=== PATIENT | female | born 1995 | race Caucasian/White ===

== ENCOUNTER 2021-04-17 11:31 | Inpatient (IN) | payer OTHER, MEDICAID, SELFPAY ==
[2021-04-17 11:43] VITALS: BP 177/106; PULSE 78; RESP 15; TEMP 37.1; O2SAT 97; BMI 42.7
--- NOTE | 2021-04-17 11:53 | ECG_ITS ---
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 Measurements Intervals [place] Rate: 73 P: 40 WY: 152 QRS: 31 QRSD: 87 T: 14 QT: 411 QTc: 455 Interpretive Statements SINUS RHYTHM No previous ECG available for comparison Electronically Signed On 04-17-2021 20:45:29 INSURANCE ADMINISTRATOR by Angie Modi M.D. [email or web address]
[2021-04-17 12:32] LABS: Basophils # 0.1 10^3/uL (0.0-0.1); Basophils % 0.6 %; Eosinophils # 0.2 10^3/uL (0.0-0.8); Eosinophils % 1.6 %; Hemoglobin 13.5 g/dL (11.5-15.3); Lymphocytes # 3.5 10^3/uL (0.8-4.8); Lymphocytes % 27.2 %; Mean Corpuscular HGB Conc 32.1 g/dL (30.0-36.0); Mean Corpuscular Hemoglobin 28.7 pg (28.0-34.0); Mean Corpuscular Volume 89.2 fl (81-99); Mean Platelet Volume 8.6 fL (7.4-10.4); Monocytes # 0.9 10^3/uL (0.2-0.9); Neutrophils # 8.08 10^3/uL (1.8-7.7); Neutrophils % 63.3 %; Nucleated Red Blood Cells % 0 %; Platelet Count 344 10^3/cmm (130-400); Red Blood Count 4.71 10^6/uL (4.1-5.3); Red Cell Distribution Width 12.9 % (12.1-15.1); White Blood Count 12.8 10^3/uL (4.0-10.0)
[2021-04-17 12:44] VITALS: BP 146/104; PULSE 74; RESP 17; O2SAT 99
[2021-04-17 12:48] LABS: Add Urine Microscopic? NO; Charge for UA Resulting for Rev
[2021-04-17 13:06] LABS: Alanine Aminotransferase 15 U/L (0-33); Alkaline Phosphatase 92 IU/L (35-105); Anion Gap 16.5 (5-19); Aspartate Amino Transferase 16 U/L (0-32); Blood Urea Nitrogen 13 mg/dL (6-20); Calcium 8.3 mg/dL (8.5-10.5); Carbon Dioxide 21 mmol/L (22-29); Chloride 103 mmol/L (98-107); Globulin 3.3 g/dL (1.3-4.6); Glomerular Filtration Rate 119.9 mL/min (90-130); Glucose 83 mg/dL (65-115); Osmolality Calculated 281 mOsm/kg (285-295); Potassium 4.5 mmol/L (3.5-5.1); Sodium 136 mmol/L (136-145); Total Bilirubin 0.3 mg/dL (0.15-1.2); Total Protein 7.3 g/dL (6.6-8.7)
[2021-04-17 13:09] LABS: HCG Qualitative Urine. Negative (Negative)
[2021-04-17 13:09] LABS: Acetaminophen < 5.0 ug/mL (10-30); Alcohol Level < 10 mg/dL (0-10); Salicylate < 0.3 mg/dL (3-10)
[2021-04-17 13:10] LABS: Bilirubin Urine Neg (Negative); Blood Urine Neg (Negative); Glucose Urine UA Norm (Normal); Ketones Urine Negative (Negative); Leukocyte Esterase Urine Negative (Negative); Nitrate Urine Negative (Negative); Protein Urine Neg (Negative); Specific Gravity, Urine 1.015 (1.005-1.030); Urine Appearance Clear (CLEAR); Urine Color Yellow (Yellow); Urobilinogen Urine Norm (Negative); pH Urine 6.5 (5-7)
[2021-04-17 13:17] LABS: Amphetamines Screen Urine Negative (Negative); Barbiturates Screen Urine Negative (Negative); Benzodiazepines Screen Urine Negative (Negative); Cocaine Screen Urine Negative (Negative); Opiate Screen Urine Negative (Negative); PCP Screen Urine Negative (Negative); THC Screen Urine Negative (Negative)
--- NOTE | 2021-04-17 13:41 | W.ED.PSYCHS ---
HPI - Psych General: Chief Complaint: Psychiatric Symptoms Stated Complaint: MHE Time Seen by Provider: 04/17/21 11:52 Source: patient and family Mode of arrival: ambulatory History of Present Illness: HPI Narrative: 25-year-old female complaining of increased suicidal ideations over the past several days. Her plan this morning was to overdose on medication anything I could find She has 6 children, youngest is 2 years old, and often feels they would be better off without me Is , has a supportive , lots of supportive family members. Reports hearing a voice tell her to kill herself, to stop being a coward . Denies visual hallucinations. complaint: suicidal ideation Onset (ago): day(s) Duration: intermittent and getting worse History of same: Yes Associated psychiatric symptoms: depression and auditory hallucinations Associated symptoms: Reports auditory hallucinations, depression and suicidal ideation If self harm: admits thoughts of self harm, has plan and intentional overdose Review of Systems General: Reports: 10 or more systems reviewed and unremarkable except in HPI and below Psych: Reports: anxiety, depression, sleeping less, hopelessness, loss of interest, difficulty concentrating, auditory hallucinations and suicidal ideation [facility] ED PFSH: Medical History Psychiatric care Physical Exam Const: COMMON NORMALS: no acute distress, patient oriented x3 and alert GENERAL APPEARANCE: cooperative NUTRITIONAL APPEARANCE: obese morbidly obese HENMT: COMMON NORMALS: normocephalic and hearing grossly normal bilaterally HEAD & SCALP: normocephalic FACE & SINUS: normal facial exam and face symmetric Eye: COMMON NORMALS: Equal, round and reactive pupils present, EOMs intact bilaterally, conjunctivae normal and no scleral icterus CONJUNCTIVA: Yes conjunctivae normal PUPIL: Yes Equal, round and reactive pupils present Resp: COMMON NORMALS: normal respiratory effort and No use of accessory muscles EFFORT & INSPECTION: Yes able to speak in complete sentences Extremity: COMMON NORMALS: full ROM, capillary refill normal and no clubbing, cyanosis or edema Neuro: COMMON NORMALS: patient oriented x3, moves all extremities and no focal motor deficits SENSORIUM/ORIENTATION: Yes alert SPEECH: speech normal Psych: COMMON NORMALS: mental status grossly normal, Normal thought process present and speech normal ATTITUDE: Yes calm ACTIVITY/MOTOR BEHAVIOR: Yes appropriate eye contact SPEECH: Yes normal speech MOOD & AFFECT: Yes depressed mood, Yes sad and Yes tearful THOUGHT PROCESS: Normal thought process present THOUGHT CONTENT: Yes Hallucination(s) present auditory ATTENTION/CONCENTRATION: Yes attention grossly intact MEMORY/COGNITION: Yes memory grossly intact INSIGHT: Fair insight present (Psych) Course Vital Signs: Vital signs: Vital Signs Temperature 98.8 F 04/17/21 11:43 Pulse Rate 74 04/17/21 12:44 Respiratory Rate 17 04/17/21 12:44 Blood Pressure 146/104 04/17/21 12:44 Pulse Oximetry 99 04/17/21 12:44 MDM - Psych MDM Narrative: Medical decision making narrative: 25-year-old female with suicidal ideations, plans to overdose, Baseline hypertension, otherwise medical work-up is unremarkable. Accepted for direct admission to Neuropsych Unit, Dr. Benavides. Medical Records: Attestation: I reviewed the patient's medical records. Lab Data: Attestation: I reviewed the patient's lab results. Labs: Lab Results 04/17/21 04/17/21 04/17/21 12:15 12:15 12:15 WBC RBC Hgb Hct MCV MCH MCHC RDW Plt Count MPV Neut % (Auto) Lymph % (Auto) Sutter % (Auto) Eos % (Auto) Baso % (Auto) Neut # (Auto) Lymph # (Auto) Sutter # (Auto) Eos # (Auto) Baso # (Auto) Nucleated RBC % (a uto) Nucleated RBCs # Sodium Potassium Chloride Carbon Dioxide Anion Gap BUN Creatinine GFR Calculation Glucose Calculated Osmolal ity Calcium Total Bilirubin AST ALT Alkaline Phosphata se Total Protein Albumin Globulin HCG, Qual Negative (Negative) Urine Color Yellow (Yellow) Urine Appearance Clear (CLEAR) Urine pH 6.5 (5-7) Ur Specific Gravit y 1.015 (1.005-1.030) Urine Protein Neg (Negative) Urine Glucose (UA) Norm (Normal) Urine Ketones Negative (Negative) Urine Blood Neg (Negative) Urine Nitrate Negative (Negative) Urine Bilirubin Neg (Negative) Urine Urobilinogen Norm mg/dL mg/dL (Negative) Ur Leukocyte Bee ase Negative (Negative) Salicylates Urine Opiates Scre en Negative ng/mL ng /mL (Negative) Acetaminophen Ur Barbiturates Sc reen Negative ng/mL ng /mL (Negative) Ur Phencyclidine S crn Negative ng/mL ng /mL (Negative) Ur Amphetamines Sc reen Negative ng/mL ng /mL (Negative) U Benzodiazepines Scrn Negative ng/mL ng /mL (Negative) Urine Cocaine Scre en Negative ng/mL ng /mL (Negative) U Marijuana (THC) Screen Negative ng/mL ng /mL (Negative) Ethyl Alcohol 04/17/21 04/17/21 12:25 12:25 WBC 12.8 10^3/uL H 10 ^3/uL (4.0-10.0) RBC 4.71 10^6/uL 10^6 /uL (4.1-5.3) Hgb 13.5 g/dL g/dL (11.5-15.3) Hct 42.0 % % (37.0-47.0) MCV 89.2 fl fl (81-99) MCH 28.7 pg pg (28.0-34.0) MCHC 32.1 g/dL g/dL (30.0-36.0) RDW 12.9 % % (12.1-15.1) Plt Count 344 10^3/cmm 10^3 /cmm (130-400) MPV 8.6 fL fL (7.4-10.4) Neut % (Auto) 63.3 % % Lymph % (Auto) 27.2 % % Sutter % (Auto) 7.0 % % Eos % (Auto) 1.6 % % Baso % (Auto) 0.6 % % Neut # (Auto) 8.08 10^3/uL H 10 ^3/uL (1.8-7.7) Lymph # (Auto) 3.5 10^3/uL 10^3/ uL (0.8-4.8) Sutter # (Auto) 0.9 10^3/uL 10^3/ uL (0.2-0.9) Eos # (Auto) 0.2 10^3/uL 10^3/ uL (0.0-0.8) Baso # (Auto) 0.1 10^3/uL 10^3/ uL (0.0-0.1) Nucleated RBC % (a uto) 0 % % Nucleated RBCs # 0.0 /100WBC /100W BC Sodium 136 mmol/L mmol/L (136-145) Potassium 4.5 mmol/L mmol/L (3.5-5.1) Chloride 103 mmol/L mmol/L (98-107) Carbon Dioxide 21 mmol/L L mmol/ L (22-29) Anion Gap 16.5 (5-19) BUN 13 mg/dL mg/dL (6-20) Creatinine 0.6 mg/dL mg/dL (0.5-0.9) GFR Calculation 119.9 mL/min mL/m in (90-130) Glucose 83 mg/dL mg/dL (65-115) Calculated Osmolal ity 281 mOsm/kg L mOs m/kg (285-295) Calcium 8.3 mg/dL L mg/dL (8.5-10.5) Total Bilirubin 0.3 mg/dL mg/dL (0.15-1.2) AST 16 U/L U/L (0-32) ALT 15 U/L U/L (0-33) Alkaline Phosphata se 92 IU/L IU/L (35-105) Total Protein 7.3 g/dL g/dL (6.6-8.7) Albumin 4.0 g/dL g/dL (3.5-5.2) Globulin 3.3 g/dL g/dL (1.3-4.6) HCG, Qual Urine Color Urine Appearance Urine pH Ur Specific Gravit y Urine Protein Urine Glucose (UA) Urine Ketones Urine Blood Urine Nitrate Urine Bilirubin Urine Urobilinogen Ur Leukocyte Bee ase Salicylates < 0.3 mg/dL L mg/ dL (3-10) Urine Opiates Scre en Acetaminophen < 5.0 ug/mL L ug/ mL (10-30) Ur Barbiturates Sc reen Ur Phencyclidine S crn Ur Amphetamines Sc reen U Benzodiazepines Scrn Urine Cocaine Scre en U Marijuana (THC) Screen Ethyl Alcohol < 10 mg/dL mg/dL (0-10) Discharge Plan Discharge Patient Disposition: Admitted As Inpatient Clinical Impression: Suicidal ideation Depression Qualifiers: Depression Type: unspecified Qualified Code(s): F32.A - Depression, unspecified Condition: Stable Coding Level of Care Code ED Equal Opportunity Assistant for Analilia Alarcon
[2021-04-17 15:57] VITALS: BP 145/91; PULSE 86; RESP 20; TEMP 36.6; O2SAT 98
[2021-04-17] MEDS: hyDROXYzine 25 mg Capsule 50 MG PO (19:33)
[2021-04-17 19:46] VITALS: BP 167/110; PULSE 81; RESP 18; O2SAT 98
--- NOTE | 2021-04-17 19:58 | PC.NURSE ---
Patient reported hearing voices. Given hydroxizine 50 mg po for this.
[2021-04-17 20:15] VITALS: BP 150/85
[2021-04-17] MEDS: OLANZapine 5 mg ODT PO (20:35)
[2021-04-17] MEDS: lurasidone 20 mg Tablet 40 MG PO (20:35)
--- NOTE | 2021-04-17 20:37 | PC.NURSE ---
Patient stating the voices are getting louder with lots of chatter and are telling her to kill herself. Patient given Zyprexa 5mg sl for this. Patient instructed to come speak to this nurse or other staff if she hears increase in voices or is suicidal.
[2021-04-18 06:00] VITALS: BP 141/84; PULSE 84; RESP 16; O2SAT 96
[2021-04-18] MEDS: escitalopram 10 mg Tablet 20 MG PO (09:34)
--- NOTE | 2021-04-18 12:02 | P.NPUHP_ITS ---
Providers/Chief Complaint Admitting Physician: Jonnie Loredo MD Primary Care Provider: Kiko Carey DO Chief Complaint: MHE HPI NPU History of Present Illness Richi Fountain is a 25 year old female who presented to the emergency department the following report: Chief Complaint: Psychiatric Symptoms Stated Complaint: MHE Time Seen by Provider: 04/17/21 11:52 Source: patient and family Mode of arrival: ambulatory History of Present Illness: HPI Narrative: 25-year-old female complaining of increased suicidal ideations over the past several days. Her plan this morning was to overdose on medication anything I could find She has 6 children, youngest is 2 years old, and often feels they would be better off without me Is , has a supportive , lots of supportive family members. Reports hearing a voice tell her to kill herself, to stop being a coward . Denies visual hallucinations. complaint: suicidal ideation Onset (ago): day(s) Duration: intermittent and getting worse History of same: Yes Associated psychiatric symptoms: depression and auditory hallucinations Associated symptoms: Reports auditory hallucinations, depression and suicidal ideation If self harm: admits thoughts of self harm, has plan and intentional overdose. She was admitted to the neuropsychiatric unit for definitive treatment of those issues. She presents today reporting she has allergies to penicillin and BuSpar and that she is currently taking Lexapro 20 milligrams po qam, Latuda 40 milligrams po q daily, Vistaril prn, and vitamins. She reports that she has been hospitalized one time in her life, which was in January, in [facility], and she has outpatient services at [facility] at [place]. She reports, in addition to the Lexapro, Latuda and Vistaril she is taking, she has taken Seroquel, in the past, and Wellbutrin in the past, which gave her hypertension, and Zoloft with which she had some feeling of numbness. She denies smoking cigarettes, denies drinking alcohol, but does report occasional marijuana use. She denies any other illicit drug use. She has never been to drug rehabilitation or had drug and alcohol treatment. She has never had a DUI or any other drug related charges. She reports she feels that. starting in May of 2019, she had depression after the of her first and only son, and she was started on Zoloft which left her with numbness. She stopped the Zoloft and the numbness resolved and the the depression resolved, but then this January she had a return of the depression that was overwhelming, and she started having suicidal thoughts. She reports feelings of low mood, and of helplessness, hopelessness, and worthlessness. She reports that her sleep does not happen much during the evening, but during the day she wants to sleep all day. She reports that she has some anxiety, lack of initiative to do the things she needs to do, and she does endorse that there has been a major change in that they have been fostering, and she has five teenagers between ages 15 and 18 currently in her home. We discussed the risks, benefits, and alternatives of increasing her Latu da to 80, in an attempt to target the voices, and she understood and agreed to proceed as is documented in this note. PSYCHIATRIC HISTORY: As above. SUBSTANCE ABUSE HISTORY: As above. FAMILY HISTORY: She endorses some mental health issues on her dad?s side of the family, but she denies addiction on either side, or any suicide attempts or completions in the family. DEVELOPMENTAL HISTORY: She reports her mom did have preeclampsia but, otherwise, she denied any issues with her or delivery. She reports she learned to walk and talk and met all developmental milestones on time. When she went to school, the patient denied any need for speech therapy, learning support, emotional support, or special education classes. PSYCHOSOCIAL HISTORY: She reports her parents were together when she was born and remain together. She endorses she has a younger brother who is also a product of that union. She denies any other children that either of her parents have had. She reports her childhood was normal and fine, and she denied any emotional, physical, or sexual abuse. She denies any trauma history but does report that she has always seemed to have nightmares. She endorses graduating from high school and getting a technical degree. She endorses being heterosexual, with her longest relationship being eight years; most recently, for five of those years with her . She has been one time; she has one biological child but is fostering five teenage kids, two sets of siblings and one solo, ages 15 to 19. She denies any history. She endorses being a [employer]. She reports that her longest employment is six years as an [employer]. She reports that she lives in a house with all the foster kids, her son, and her . LEGAL HISTORY: Denied. 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 Meds NPU Home Medications Medication Instructions Recorded Confirmed Last Taken Type escitalopram oxalate 20 mg tablet 20 mg PO DAILY 02/27/21 04/17/21 04/16/21 History lurasidone [Latuda] 40 mg PO BEDTIME 04/17/21 04/17/21 04/16/21 History Allergies Allergy/AdvReac Type Severity Reaction Status Date / Time buspirone Allergy Nausea, Verified 02/26/21 09:23 Vomiting Penicillins Allergy Hives Verified 02/26/21 09:23 PFSH NPU PFSH: Medical History Psychiatric care Mental Status Exam MSE Comments: This is an obese, white female, in hospital scrubs, with limited grooming and adequate eye contact. No abnormal movements, except for mild psychomotor retardation. Cooperative with exam in no acute distress. Speech was decreased rate and volume. Mood described as depressed; affect congruent. Thought process, organized. Thought content: patient endorsed suicidal ideation but denied homicidal ideation, there were no delusions reported or noted, patient does report hearing voices but denied any visual hallucinations. Attention, concentration, and memory appear intact but none were formally tested. She is alert and oriented times three. Insight and judgment are fair. Impulse control is fair. Vitals/I&O/Wt Last Vital Signs Temp 97.8 F 04/17/21 15:57 Pulse 84 04/18/21 06:00 Resp 16 04/18/21 06:00 BP 141/84 04/18/21 06:00 Pulse Ox 96 04/18/21 06:00 Weight last 48 hrs Weight 120.202 kg Data NPU : 04/17/21 12:25 04/17/21 12:25 A&P Assessment and plan (1) Depression: Status: Acute Qualifiers: Depression Type: unspecified Qualified Code(s): F32.A - Depression, un specified (2) Suicidal ideation: Status: Acute (3) Psychosis: Status: Acute (4) Adjustment disorder with mixed disturbance of emotions and conduct: Status: Acute Additional A&P Information This is a 25-year-old, white female, with adjustment disorder with mixed disturbance of emotion and conduct,major depressive disorder, recurrent, severe, and anxiety, who presents with recent onset of auditory hallucinations, open to medication adjustments. 1. Continue current medication, except: 2. Increase Latuda to 80 milligrams daily. 3. Encourage individual, group, and milieu therapy. 4. Continue q-15 minute checks for safety. 5. Recommend sober living treatment at the highest level of care to which the patient is willing to commit. Involuntary Hold Information 96 Hour Hold: 96 Hour Involuntary Admission: No Attestations NPU Medical Necessity Statement*: Inpatient hospitalization is medically necessary and the clinically appropriate intervention, at this time. We will monitor medications and make changes as indicated. Patient will be in the hospital for over two midnights. Likely length of stay is three to five days. Coding Level of Care Code Acute Records Officer for Analilia Alarcon Diagnoses Depression F32.A Depression Type: unspecified Suicidal ideation R45.851 Psychosis F29 Adjustment disorder with mixed disturbance of emotions and conduct F43.25
[2021-04-18] MEDS: lurasidone 80 mg Tablet PO (13:47)
[2021-04-18 14:00] VITALS: BP 141/84; PULSE 84; RESP 16; TEMP 36.6; O2SAT 96
[2021-04-18 20:14] VITALS: BP 136/91; PULSE 70; RESP 16; O2SAT 91
[2021-04-18] MEDS: hyDROXYzine 25 mg Capsule 50 MG PO (20:17)
[2021-04-18] MEDS: trazodone 50 mg Tablet PO (20:17)
--- NOTE | 2021-04-18 20:17 | PC.NURSE ---
Vistaril 50 mg Po given for anxiety and Trazadone 50 mg po given for sleep aide.
[2021-04-19 06:00] VITALS: RESP 18
[2021-04-19] MEDS: escitalopram 10 mg Tablet 20 MG PO (08:34)
[2021-04-19] MEDS: lurasidone 80 mg Tablet PO (08:34)
[2021-04-19 14:00] VITALS: BP 154/94; PULSE 98; RESP 20; TEMP 36.7; O2SAT 97
--- NOTE | 2021-04-19 19:33 | P.NPUPN_ITS ---
Subjective NPU Subjective: Interval history: Patient presents today reporting that she feels better and denied having command auditory hallucinations she had during her first conversation. We had a very lengthy conversation with her mother where an discharge and how she is going to figure out the details of the gentleman she does in her life. We discussed some of the automatic negative thoughts that she has and the critical need for her to figure out how to set boundaries to avoid a repeat of the situation. Mental Status Exam MSE Comments: This is an obese, white female, in hospital scrubs, with limited grooming and adequate eye contact. No abnormal movements, except for mild psychomotor retardation. Cooperative with exam in no acute distress. Speech was decreased rate and volume. Mood described as a little better; affect congruent. Thought process, organized. Thought content: patient endorsed suicidal ideation but denied homicidal ideation, there were no delusions reported or noted, patient denied auditory or any visual hallucinations. Attention, concentration, and memory appear intact but none were formally tested. She is alert and oriented times three. Insight and judgment are fair. Impulse control is fair. Vitals/I&O/Wt Last Vital Signs Temp 97 F L 04/19/21 20:49 Pulse 98 04/19/21 20:49 Resp 16 04/19/21 20:49 BP 120/81 04/19/21 20:49 Pulse Ox 98 04/19/21 20:49 Data NPU : 04/17/21 12:25 04/17/21 12:25 A&P Additional A&P Information (1) Depression: (2) Suicidal ideation: (3) Psychosis: (4) Adjustment disorder with mixed disturbance of emotions and conduct: Additional A&P Information This is a 25-year-old, white female, with adjustment disorder with mixed disturbance of emotion and conduct,major depressive disorder, recurrent, severe, and anxiety, who presents with recent onset of auditory hallucinations, open to medication adjustments. 1. Continue current medication, except: 2. Encourage individual, group, and milieu therapy. 3. Continue q-15 minute checks for safety. 4. Recommend sober living treatment at the highest level of care to which the patient is willing to commit. Involuntary Hold Information 96 Hour Hold: 96 Hour Involuntary Admission: No Attestations NPU Medical Necessity Statement*: Inpatient hospitalization is medically necessary and the clinically appropriate intervention, at this time. We will monitor medications and make changes as indicated. Likely length of stay is 1-3 days. Coding Level of Care Code Acute Auto Body Repair Technician for Analilia Alarcon
[2021-04-19 20:49] VITALS: BP 120/81; PULSE 98; RESP 16; TEMP 36.1; O2SAT 98
[2021-04-20 06:27] VITALS: BP 151/104; PULSE 81; RESP 18; TEMP 36.5; O2SAT 99
[2021-04-20] MEDS: escitalopram 10 mg Tablet 20 MG PO (09:03)
[2021-04-20] MEDS: lurasidone 80 mg Tablet PO (09:03)
--- NOTE | 2021-04-20 15:27 | P.NPUDS_ITS ---
Diagnoses at Discharge Discharge Diagnosis (1) Depression: Status: Acute Qualifiers: Depression Type: unspecified Qualified Code(s): F32.A - Depression, unspecified (2) Suicidal ideation: Status: Resolved (3) Psychosis: Status: Resolved (4) Adjustment disorder with mixed disturbance of emotions and conduct: Status: Acute Reason for Visit Reason for Visit: MHE Brief History: History of Present Illness Richi Fountain is a 25 year old female who presented to the emergency department the following report: Chief Complaint: Psychiatric Symptoms Stated Complaint: MHE Time Seen by Provider: 04/17/21 11:52 Source: patient and family Mode of arrival: ambulatory History of Present Illness: HPI Narrative: 25-year-old female complaining of increased suicidal ideations over the past several days. Her plan this morning was to overdose on medication anything I could find She has 6 children, youngest is 2 years old, and often feels they would be better off without me Is , has a supportive , lots of supportive family members. Reports hearing a voice tell her to kill herself, to stop being a coward . Denies visual hallucinations. MD complaint: suicidal ideation Onset (ago): day(s) Duration: intermittent and getting worse History of same: Yes Associated psychiatric symptoms: depression and auditory hallucinations Associated symptoms: Reports auditory hallucinations, depression and suicidal ideation If self harm: admits thoughts of self harm, has plan and intentional overdose. She was admitted to the neuropsychiatric unit for definitive treatment of those issues. She presents today reporting she has allergies to penicillin and BuSpar and that she is currently taking Lexapro 20 milligrams po qam, Latuda 40 milligrams po q daily, Vistaril prn, and vitamins. She reports that she has been hospitalized one time in her life, which was in January, in [facility], and she has outpatient services at [facility] [place]. She reports, in addition to the Lexapro, Latuda and Vistaril she is taking, she has taken Seroquel, in the past, and Wellbutrin in the past, which gave her hypertension, and Zoloft with which she had some feeling of numbness. She denies smoking cigarettes, denies drinking alcohol, but does report occasional marijuana use. She denies any other illicit drug use. She has never been to drug rehabilitation or had drug and alcohol treatment. She has never had a DUI or any other drug related charges. She reports she feels that. starting in May of 2019, she had depression after the of her first and only son, and she was started on Zoloft which left her with numbness. She stopped the Zoloft and the numbness resolved and the the depression resolved, but then this January she had a return of the depression that was overwhelming, and she started having suicidal thoughts. She reports feelings of low mood, and of helplessness, hopelessness, and worthlessness. She reports that her sleep does not happen much during the evening, but during the day she wants to sleep all day. She reports that she has some anxiety, lack of initiative to do the things she needs to do, and she does endorse that there has been a major change in that they have been fostering, and she has five teenagers between ages 15 and 18 currently in her home. We discussed the risks, benefits, and alternatives of increasing her Latuda to 80, in an attempt to target the voices, and she understood and agreed to proceed as is documented in this note. PSYCHIATRIC HISTORY: As above. SUBSTANCE ABUSE HISTORY: As above. FAMILY HISTORY: She endorses some mental health issues on her dad?s side of the family, but she denies addiction on either side, or any suicide attempts or completions in the family. DEVELOPMENTAL HISTORY: She reports her mom did have preeclampsia but, otherwise, she denied any issues with her or delivery. She reports she learned to walk and talk and met all developmental milestones on time. When she went to school, the patient denied any need for speech therapy, learning support, emotional support, or special education classes. PSYCHOSOCIAL HISTORY: She reports her parents were together when she was born and remain together. She endorses she has a younger brother who is also a product of that union. She denies any other children that either of her parents have had. She reports her childhood was normal and fine, and she denied any emotional, physical, or sexual abuse. She denies any trauma history but does report that she has always seemed to have nightmares. She endorses graduating from high school and getting a technical degree. She endorses being heterosexual, with her longest relationship being eight years; most recently, for five of those years with her . She has been one time; she has one biological child but is fostering five teenage kids, two sets of siblings and one solo, ages 15 to 19. She denies any history. She endorses being a Sikh. 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 She reports that she lives in a house with all the foster kids, her son, and her . LEGAL HISTORY: Denied. 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 Hospital Course Hospital Course She quickly acclimated to the individual, group and milieu therapies provided. We made sure she had all of her medications as prescribed and adjusted the time of her dosing. She had significant improvement during the hospitalization. Clearly a need for ongoing therapy for her cognitive distortions existed. Some possibility for personality disorder existed as well. She was able to contract for safety outside the hospital prior to discharge. During the hospitalization, patient had routine laboratory studies which were within normal limits except for few outliers. Additionally there was a general medical evaluation which was also within normal limits and revealed no new acute processes. Discharge Summary: At the time of discharge, psychosis and lethality were denied. Mood and anxiety were well managed. Patient endorsed a plan to follow-up with the aftercare recommendations of the treatment team. Patient was evaluated and deemed to be absent credible lethality, and had achieved the maximum benefit from an inpatient hospitalization, so was discharged. Involuntary Hold Information 96 Hour Hold: 96 Hour Involuntary Admission: No Mental Status Exam MSE Comments: This is an obese, white female, in hospital scrubs, with adequate grooming and adequate eye contact. No abnormal movements. Cooperative with exam in no acute distress. Speech was more normal rate and volume. Mood described as better; affect congruent. Thought process, organized. Thought content: patient denied suicidal ideation or homicidal ideation, there were no delusions reported or noted, patient denied auditory or any visual hallucinations. Attention, concentration, and memory appear intact but none were formally tested. She is alert and oriented times three. Insight and judgment are fair. Impulse control is fair. Discharge Data Vitals: Last Vital Signs Temp 97.7 F 04/20/21 06:27 Pulse 81 04/20/21 06:27 Resp 18 04/20/21 06:27 BP 151/104 04/20/21 06:27 Pulse Ox 99 04/20/21 06:27 Discharge Plan Discharge Patient Disposition: Home Condition: Stable Prescriptions: Discontinued escitalopram oxalate [Lexapro] 20 mg tablet 20 mg PO DAILY RF: 0 Latuda 40 mg tablet 40 mg PO BEDTIME RF: 0 No Action Lexapro 20 mg tablet 20 mg PO DAILY 30 Days Qty: 30 RF: 3 Latuda 120 mg tablet 120 mg PO .qhs 30 Days Qty: 30 RF: 3 hydroxyzine HCl 25 mg tablet 25 mg PO QID PRN (Reason: anxiety or sleep) Qty: 120 RF: 3 quetiapine 50 mg tablet 50 mg PO .qhs 30 Days Qty: 30 RF: 3 Discharge Orders: Discharge Order (Routine); Ordered 04/20/21 Ordered By: Juan Ball Referrals: Meghann Fox MD [[place]] - 04/22/21 (Medications appointment with Dr. Fox at the [facility] on 04/22/21) Kiesha Lim LCSW [Referring] - 04/26/21 (Therapy appointment with Kiesha Lim on 04/26/21 at the [facility] ) Kiko Carey DO [Primary Care Provider] - Discharge Diet: Regular Discharge Activity: Resume usual activity Patient Instructions: Opioid Safety Discharge Attestations NPU Time Spent in Discharge Care*: less than 30 min Specific Discharge Activities: Specific discharge activities: educating patient, discussing with case resource manager/social workers/dc planners, documenting/other paperwork and evaluating patient/reviewing data Coding Level of Care Code Acute Chg FW DC note Diagnoses Depression F32.A Depression Type: unspecified Suicidal ideation R45.851 Psychosis F29 Adjustment disorder with mixed disturbance of emotions and conduct F43.25
[2021-04-20 15:28] VITALS: BP 151/104; PULSE 81; RESP 18; TEMP 36.5; O2SAT 99
== END 2021-04-20 15:31 | disposition home or self-care (01) | DRG 881 ==
LOC: ER 14:35 → NP 15:06
PROVIDERS: Admitting Provider Psychiatry & Neurology Psychiatry; Emergency Provider Family Medicine; PCP Family Medicine; Visit Provider Psychiatry & Neurology Psychiatry
DX: F32.A Depression, unspecified (principal); R45.851 Suicidal ideations; Z68.41 Body mass index [BMI] 40.0-44.9, adult; F29 Unspecified psychosis not due to a substance or known physiological condition; F43.25 Adjustment disorder with mixed disturbance of emotions and conduct; F41.9 Anxiety disorder, unspecified; E66.9 Obesity, unspecified
CPT/HCPCS: 80053; 80306; 80307; 81003; 81025; 85025; 93005; 97150; 97165; 99285

== ENCOUNTER 2021-10-15 11:22 | Inpatient (IN) | payer BC, MEDICAID, SELFPAY ==
[2021-10-15 11:38] VITALS: BP 138/98; PULSE 115; RESP 13; TEMP 37.1; O2SAT 97; BMI 43.2
--- NOTE | 2021-10-15 11:54 | W.ED.PSYCHS ---
HPI - Psych General: Chief Complaint: Psychiatric Symptoms Stated Complaint: SI Time Seen by Provider: 10/15/21 11:44 History of Present Illness: 26-year-old presents with suicidal ideation. She states she is on gabapentin Latuda and lithium. Reports plan to overdose on gabapentin but states she has not done it yet. Denies any homicidal ideation. Denies any focal pain. Denies any hallucinations or delusions. Review of Systems Narrative: - CONSTITUTIONAL: Denies weight loss, fever and chills. - HEENT: Denies changes in vision and hearing. - RESPIRATORY: Denies SOB and cough. - CV: Denies palpitations and CP. - GI: Denies abdominal pain, nausea, vomiting and diarrhea. - : Denies dysuria and urinary frequency. - MSK: Denies myalgia and joint pain. - SKIN: Denies rash and pruritus. - NEUROLOGICAL: Denies headache, weakness, numbness and syncope. - PSYCHIATRIC: As above [facility] ED PFSH: Medical History (Updated 04/22/21 @ 15:08 by Meghann Fox MD) MDD (major depressive disorder), single episode, severe with psychotic features Psychiatric care Physical Exam Narrative: EXAM NARRATIVE: - GENERAL: Alert and oriented x 3. No acute distress. Well-nourished. - EYES: EOMI. Anicteric. - HENT: Atraumatic, no C-spine tenderness. Moist mucous membranes. No scleral icterus. No cervical lymphadenopathy. - LUNGS: Clear to auscultation bilaterally. No accessory muscle use. Equal lung sounds bilaterally. No respiratory distress. - CARDIOVASCULAR: Regular rate and rhythm. No murmur. No JVD. - ABDOMEN: Soft, non-tender and non-distended. Negative CVA tenderness bilaterally, no rebound or guarding, negative Zelaya sign. No palpable masses. - EXTREMITIES: No edema. Non-tender. - SKIN: No rashes or lesions. Warm. - NEUROLOGIC: No meningismus or focal neurological deficits. CN II-XII grossly intact. - PSYCHIATRIC: Suicidal ideation Course Vital Signs: Vital signs: Vital Signs Temperature 98.7 F 10/15/21 11:38 Pulse Rate 115 H 10/15/21 11:38 Respiratory Rate 13 10/15/21 11:38 Blood Pressure 138/98 10/15/21 11:38 Pulse Oximetry 97 10/15/21 11:38 [facility] - Psych Medical Decision Making 26-year-old presents due to suicidal ideation. States she plans to overdose on gabapentin but is not done so yet. Remainder of lab work is unremarkable except for white count elevation to 19 however there is no sign of focal infection. Discussed with psychiatry and they agreed patient would benefit from admission. Patient admitted in stable condition. Further evaluation management per psychiatry team. Lab Data : 10/15/21 12:08 10/15/21 12:08 Laboratory Results WBC 19.3 10^3/uL (4.0-10.0) H 10/15/21 12:08 RBC 5.17 10^6/uL (4.1-5.3) 10/15/21 12:08 Hgb 15.3 g/dL (11.5-15.3) 10/15/21 12:08 Hct 45.0 % (37.0-47.0) 10/15/21 12:08 MCV 87.0 fl (81-99) 10/15/21 12:08 MCH 29.6 pg (28.0-34.0) 10/15/21 12:08 MCHC 34.0 g/dL (30.0-36.0) 10/15/21 12:08 RDW 12.8 % (12.1-15.1) 10/15/21 12:08 Plt Count 399 10^3/cmm (130-400) 10/15/21 12:08 MPV 8.4 fL (7.4-10.4) 10/15/21 12:08 Neut % (Auto) 75.4 % 10/15/21 12:08 Lymph % (Auto) 18.5 % 10/15/21 12:08 [place] % (Auto) 4.8 % 10/15/21 12:08 Eos % (Auto) 0.6 % 10/15/21 12:08 Baso % (Auto) 0.4 % 10/15/21 12:08 Neut # (Auto) 14.57 10^3/uL (1.8-7.7) H 10/15/21 12:08 Lymph # (Auto) 3.6 10^3/uL (0.8-4.8) 10/15/21 12:08 [place] # (Auto) 0.9 10^3/uL (0.2-0.9) 10/15/21 12:08 Eos # (Auto) 0.1 10^3/uL (0.0-0.8) 10/15/21 12:08 Baso # (Auto) 0.1 10^3/uL (0.0-0.1) 10/15/21 12:08 Nucleated RBC % (auto) 0 % 10/15/21 12:08 Nucleated RBCs # 0.0 /100WBC 10/15/21 12:08 Sodium 137 mmol/L (136-145) 10/15/21 12:08 Potassium 4.0 mmol/L (3.5-5.1) 10/15/21 12:08 Chloride 102 mmol/L (98-107) 10/15/21 12:08 Carbon Dioxide 22 mmol/L (22-29) 10/15/21 12:08 Anion Gap 17.0 (5-19) 10/15/21 12:08 BUN 10 mg/dL (6-20) 10/15/21 12:08 Creatinine 0.6 mg/dL (0.5-0.9) 10/15/21 12:08 GFR Calculation 119.0 mL/min (90-130) 10/15/21 12:08 Glucose 102 mg/dL (65-115) 10/15/21 12:08 Calculated Osmolality 283 mOsm/kg (285-295) L 10/15/21 12:08 Calcium 9.4 mg/dL (8.5-10.5) 10/15/21 12:08 Total Bilirubin 0.2 mg/dL (0.15-1.2) 10/15/21 12:08 AST 14 U/L (0-32) 10/15/21 12:08 ALT 24 U/L (0-33) 10/15/21 12:08 Alkaline Phosphatase 88 IU/L (35-105) 10/15/21 12:08 Total Protein 8.2 g/dL (6.6-8.7) 10/15/21 12:08 Albumin 4.7 g/dL (3.5-5.2) 10/15/21 12:08 Globulin 3.5 g/dL (1.3-4.6) 10/15/21 12:08 TSH 1.35 uIU/mL (0.27-4.20) 10/15/21 12:08 HCG, Qual Negative (Negative) 10/15/21 11:30 Urine Color Yellow (Yellow) 10/15/21 11:30 Urine Appearance Clear (CLEAR) 10/15/21 11:30 Urine pH 5 (5-7) 10/15/21 11:30 Ur Specific [place] 1.030 (1.005-1.030) 10/15/21 11:30 Urine Protein Neg (Negative) 10/15/21 11:30 Urine Glucose (UA) Norm (Normal) 10/15/21 11:30 Urine Ketones Negative (Negative) 10/15/21 11:30 Urine Blood Neg (Negative) 10/15/21 11:30 Urine Nitrate Negative (Negative) 10/15/21 11:30 Urine Bilirubin Neg (Negative) 10/15/21 11:30 Urine Urobilinogen Norm mg/dL (Negative) 10/15/21 11:30 Ur Leukocyte Esterase Negative (Negative) 10/15/21 11:30 Salicylates < 0.3 mg/dL (3-10) L 10/15/21 12:08 Urine Opiates Screen Negative ng/mL (Negative) 10/15/21 11:30 Acetaminophen < 5.0 ug/mL (10-30) L 10/15/21 12:08 Ur Barbiturates Screen Negative ng/mL (Negative) 10/15/21 11:30 Ur Phencyclidine Scrn Negative ng/mL (Negative) 10/15/21 11:30 Ur Amphetamines Screen Negative ng/mL (Negative) 10/15/21 11:30 U Benzodiazepines Scrn Negative ng/mL (Negative) 10/15/21 11:30 [place] 0.2 mmol/L (0.6-1.2) L 10/15/21 12:08 Urine Cocaine Screen Negative ng/mL (Negative) 10/15/21 11:30 U Marijuana (THC) Screen Negative ng/mL (Negative) 10/15/21 11:30 Ethyl Alcohol < 10 mg/dL (0-10) 10/15/21 12:08 Discharge Plan Discharge Condition: Stable Prescriptions: No Action hydroxyzine HCl 25 mg tablet 25 mg PO QID PRN (Reason: anxiety or sleep) Qty: 120 3RF gabapentin 100 mg capsule 300 mg PO TID 0RF lithium carbonate 300 mg tablet 300 mg PO BEDTIME 0RF Latuda 20 mg Tablet 20 mg PO DAILY 0RF Rx Instructions: must administer with food (at least 350 calories) Ozempic 1 mg/dose (4 mg/3 mL) pen injector 1 mg SUBCUT Q7D 0RF Rx Instructions: On Fridays Referrals: Shantell Ybarra FNP [Primary Care Provider] - Coding Level of Care Code ED Intermediate Designer for Analilia Alarcon
[2021-10-15 12:13] LABS: Add Urine Microscopic? NO; Charge for UA Resulting for Rev
[2021-10-15 12:16] LABS: Bilirubin Urine Neg (Negative); Blood Urine Neg (Negative); Glucose Urine UA Norm (Normal); Ketones Urine Negative (Negative); Leukocyte Esterase Urine Negative (Negative); Nitrate Urine Negative (Negative); Protein Urine Neg (Negative); Urine Appearance Clear (CLEAR); Urine Color Yellow (Yellow); Urobilinogen Urine Norm (Negative); pH Urine 5 (5-7)
[2021-10-15 12:18] LABS: Basophils # 0.1 10^3/uL (0.0-0.1); Basophils % 0.4 %; Eosinophils # 0.1 10^3/uL (0.0-0.8); Eosinophils % 0.6 %; Hemoglobin 15.3 g/dL (11.5-15.3); Lymphocytes # 3.6 10^3/uL (0.8-4.8); Lymphocytes % 18.5 %; Mean Corpuscular Hemoglobin 29.6 pg (28.0-34.0); Mean Platelet Volume 8.4 fL (7.4-10.4); Monocytes # 0.9 10^3/uL (0.2-0.9); Monocytes % 4.8 %; Neutrophils # 14.57 10^3/uL (1.8-7.7); Neutrophils % 75.4 %; Nucleated Red Blood Cells % 0 %; Platelet Count 399 10^3/cmm (130-400); Red Blood Count 5.17 10^6/uL (4.1-5.3); Red Cell Distribution Width 12.8 % (12.1-15.1); White Blood Count 19.3 10^3/uL (4.0-10.0)
[2021-10-15 12:25] LABS: Amphetamines Screen Urine Negative (Negative); Barbiturates Screen Urine Negative (Negative); Benzodiazepines Screen Urine Negative (Negative); Cocaine Screen Urine Negative (Negative); Opiate Screen Urine Negative (Negative); PCP Screen Urine Negative (Negative); THC Screen Urine Negative (Negative)
[2021-10-15 12:40] LABS: HCG Qualitative Urine. Negative (Negative)
[2021-10-15 12:42] LABS: Lithium 0.2 mmol/L (0.6-1.2)
[2021-10-15 12:43] LABS: Alanine Aminotransferase 24 U/L (0-33); Albumin Level 4.7 g/dL (3.5-5.2); Alkaline Phosphatase 88 IU/L (35-105); Aspartate Amino Transferase 14 U/L (0-32); Blood Urea Nitrogen 10 mg/dL (6-20); Calcium 9.4 mg/dL (8.5-10.5); Carbon Dioxide 22 mmol/L (22-29); Chloride 102 mmol/L (98-107); Globulin 3.5 g/dL (1.3-4.6); Glucose 102 mg/dL (65-115); Osmolality Calculated 283 mOsm/kg (285-295); Sodium 137 mmol/L (136-145); Thyroid Stimulating Hormone 1.35 uIU/mL (0.27-4.20); Total Bilirubin 0.2 mg/dL (0.15-1.2); Total Protein 8.2 g/dL (6.6-8.7)
[2021-10-15 12:46] LABS: Acetaminophen < 5.0 ug/mL (10-30); Alcohol Level < 10 mg/dL (0-10); Salicylate < 0.3 mg/dL (3-10)
[2021-10-15 14:27] VITALS: BP 109/78; PULSE 104; RESP 18; O2SAT 100
[2021-10-15 15:00] VITALS: BP 109/78; PULSE 104; RESP 16; O2SAT 100
[2021-10-15 18:03] VITALS: BP 140/96; PULSE 89; RESP 17; TEMP 36.6; O2SAT 96
[2021-10-15 20:42] VITALS: BP 136/95; PULSE 112; RESP 16; TEMP 36.8; O2SAT 99
[2021-10-15] MEDS: hyDROXYzine 25 mg Capsule 50 MG PO (20:52)
[2021-10-15] MEDS: OLANZapine 5 mg ODT PO (20:53)
[2021-10-15] MEDS: trazodone 50 mg Tablet PO (20:53)
--- NOTE | 2021-10-15 21:13 | PC.NURSE ---
Patient given trazadone 50 mg po, Zyprexa 5 mg po and hydroxyzine 50 mg for c/o insomnia and commanding auditory hallucinations. Patient states voices are telling me to kill myself.
[2021-10-16 06:00] VITALS: BP 94/51; PULSE 92; RESP 18; TEMP 36.6; O2SAT 98
--- NOTE | 2021-10-16 08:56 | P.NPUHP_ITS ---
Providers/Chief Complaint Admitting Physician: Juan Ball MD Primary Care Provider: ERIK Gregory Chief Complaint: SI HPI NPU History of Present Illness Richi Fountain is a 26 year old female who presented to the emergency department with the following report: Chief Complaint: Psychiatric Symptoms Stated Complaint: SI Time Seen by Provider: 10/15/21 11:44 History of Present Illness: 26-year-old presents with suicidal ideation. She states she is on gabapentin Latuda and lithium. Reports plan to overdose on gabapentin but states she has not done it yet. Denies any homicidal ideation. Denies any focal pain. Denies any hallucinations or delusions. She was admitted to the neuropsychiatric unit for definitive treatment of those issues. 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 She reports that since discharge on Lexapro 20 and Latuda 40 she had continued to have depression. She reports that they decided to put her on lithium and decrease her Latuda. She started Ozempic and there was an increase in tremors she reports about 2 weeks ago there was a shift in her mood and she started feeling like she was hypomanic and that time she was having grandiosity decreased need for sleep and increased energy and racing thoughts. For the last week she reports that that switched over to being depressed having increased sleep low motivation suicidal ideation with a plan to overdose on her Neurontin. She is also had a reemergence of intermittent auditory hallucinations. We reviewed her medications and discussed the risk benefits and alternatives of making some changes and she understood and agreed to proceed as is documented in this note. She reports that otherwise there have been no substantive changes since her last hospitalization and an excerpt of that note is included below for context. Per her 04/18/2021 [facility] inpatient psychiatric evaluation: Richi Fountain is a 25 year old female who presented to the emergency department the following report: Chief Complaint: Psychiatric Symptoms Stated Complaint: MHE Time Seen by Provider: 04/17/21 11:52 Source: patient and family Mode of arrival: ambulatory History of Present Illness:?? HPI Narrative: 25-year-old female complaining of increased suicidal ideations over the past several days.? Her plan this morning was to overdose on medication anything I could find She has 6 children, youngest is 2 years old, and often feels they would be better off without me Is , has a supportive , lots of supportive family members. Reports hearing a voice tell her to kill herself, to stop being a coward . Denies visual hallucinations. ? complaint: suicidal ideation Onset (ago): day(s) Duration: intermittent and getting worse History of same: Yes Associated psychiatric symptoms: depression and auditory hallucinations Associated symptoms: Reports auditory hallucinations, depression and suicidal ideation If self harm: admits thoughts of self harm, has plan and intentional overdose. She was admitted to the neuropsychiatric unit for definitive treatment of those issues. She presents today reporting she has allergies to penicillin and BuSpar and that she is currently taking Lexapro 20 milligrams po qam, Latuda 40 milligrams po q daily, Vistaril prn, and vitamins. She reports that she has been hospitalized one time in her life, which was in January, in [facility], and she has outpatient services at [facility] at [place]. She reports, in addition to the Lexapro, Latuda and Vistaril she is taking, she has taken Seroquel, in the past, and Wellbutrin in the past, which gave her hypertension, and Zoloft with which she had some feeling of numbness. She denies smoking cigarettes, denies drinking alcohol, but does report occasional marijuana use. She denies any other illicit drug use. She has never been to drug rehabilitation or had drug and alcohol treatment. She has never had a DUI or any other drug related charges. She reports she feels that. starting in May of 2019, she had depression after the of her first and only son, and she was started on Zoloft which left her with numbness. She stopped the Zoloft and the numbness resolved and the the depression resolved, but then this January she had a return of the depression that was overwhelming, and she started having suicidal thoughts. She reports feelings of low mood, and of helplessness, hopelessness, and worthlessness. She reports that her sleep does not happen much during the evening, but during the day she wants to sleep all day. She reports that she has some anxiety, lack of initiative to do the things she needs to do, and she does endorse that there has been a major change in that they have been fostering, and she has five teenagers between ages 15 and 18 currently in her home.? We discussed the risks, benefits, and alternatives of increasing her Latuda to 80, in an attempt to target the voices, and she understood and agreed to proceed as is documented in this note.? PSYCHIATRIC HISTORY: As above. SUBSTANCE ABUSE HISTORY: As above.? FAMILY HISTORY: She endorses some mental health issues on her dad?s side of the family, but she denies addiction on either side, or any suicide attempts or completions in the family. DEVELOPMENTAL HISTORY: She reports her mom did have preeclampsia but, otherwise, she denied any issues with her or delivery. She reports she learned to walk and talk and met all developmental milestones on time. When she went to school, the patient denied any need for speech therapy, learning support, emotional support, or special education classes. PSYCHOSOCIAL HISTORY: She reports her parents were together when she was born and remain together. She endorses she has a younger brother who is also a product of that union. She denies any other children that either of her parents have had. She reports her childhood was normal and fine, and she denied any emotional, physical, or sexual abuse. She denies any trauma history but does report that she has always seemed to have nightmares. She endorses graduating from high school and getting a technical degree.? She endorses being heterosexual, with her longest relationship being eight years; most recently, for five of those years with her . She has been one time; she has one biological child but is fostering five teenage kids, two sets of siblings and one solo, ages 15 to 19. She denies any history.? She endorses being a Taoism. She reports that her longest employment is six years as an [employer]. She reports that she lives in a house with all the foster kids, her son, and her . LEGAL HISTORY: Denied. 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 Meds NPU Home Medications Medication Instructions Recorded Confirmed Last Taken Type hydroxyzine HCl 25 mg tablet 25 mg PO QID PRN #120 tab 04/22/21 10/15/21 10/15/21 Rx gabapentin 100 mg capsule 300 mg PO TID 10/15/21 10/15/21 10/15/21 History lisinopril 10 mg tablet 10 mg PO DAILY 10/15/21 10/15/21 Unknown History lithium carbonate 300 mg tablet 300 mg PO BEDTIME 10/15/21 10/15/21 10/14/21 History lurasidone 20 mg tablet (Latuda) 20 mg PO DAILY 10/15/21 10/15/21 10/14/21 History semaglutide 1 mg/dose (4 mg/3 mL) 1 mg SUBCUT Q7D 10/15/21 10/15/21 10/11/21 History subcutaneous pen injector (Ozempic) lamotrigine 25 mg tablet 50 mg PO DAILY 10/16/21 10/16/21 Unknown History Allergies Allergy/AdvReac Type Severity Reaction Status Date / Time buspirone Allergy Nausea, Verified 05/06/21 14:36 Vomiting lamotrigine [From Lamictal] Allergy ALGY-Rash Verified 10/15/21 11:38 Penicillins Allergy Hives Verified 05/06/21 14:36 PFSH NPU PFSH: Medical History (Updated 10/16/21 @ 10:10 by Juan Ball MD) MDD (major depressive disorder), single episode, severe with psychotic features Psychiatric care Mental Status Exam MSE Comments: This is an obese versus morbidly obese white female, in hospital scrubs, with limited grooming and adequate eye contact. No abnormal movements, except for mild psychomotor retardation. Cooperative with exam in no acute distress. Speech was decreased rate and volume. Mood described as depressed; affect congruent. Thought process, organized. Thought content: patient endorsed?suicidal ideation but denied homicidal ideation, there were no delusions reported or noted, patient does report hearing voices intermittently but denied any visual hallucinations. Attention, concentration, and memory appear intact but none were formally tested. She is alert and oriented times three. Insight fair, judgment impaired. Impulse control is limited. Vitals/I&O/Wt Last Vital Signs Temp 98.3 F 10/15/21 20:42 Pulse 112 H 10/15/21 20:42 Resp 16 10/15/21 20:42 BP 136/95 10/15/21 20:42 Pulse Ox 99 10/15/21 20:42 Weight last 48 hrs Weight 121.563 kg Data NPU : 10/15/21 12:08 10/15/21 12:08 A&P Assessment and plan (1) Bipolar disorder, curr episode depressed, severe, w/psychotic features: Status: Acute Plan This is a 26-year-old white female with a long history of mental health issues and different diagnoses in the past who presents with symptoms consistent with bipolar disorder versus schizoaffective disorder currently on medications but with concerns related to efficacy as well as possible planned open to make changes to help stabilize her current mood. 1. Continue current medications. Except we will talk to her insurance company to identify whether Vraylar is an option instead of the Latuda and possibly move away from the lithium with another mood stabilizer. 2. Continue every 15 minute checks for safety. 3. Encourage individual, group and milieu therapies. 4. We will ensure that past addictive issues are no longer present. Involuntary Hold Information 96 Hour Hold: 96 Hour Involuntary Admission: No Attestations NPU Medical Necessity Statement*: Inpatient hospitalization is medically necessary and the clinically appropriate intervention at this time. We will monitor medications and make changes as indicated. She will be in the hospital for over 2 midnights. Likely length of stay 4 to 6 days. Coding Level of Care Code Acute Mobile Lounge Driver for Analilia Alarcon Diagnoses Bipolar disorder, curr episode depressed, severe, w/psychotic features F31.5
[2021-10-16] MEDS: gabapentin 300 mg Capsule PO ×3 (09:10→20:34)
[2021-10-16] MEDS: lurasidone 20 mg Tablet PO (09:10)
[2021-10-16] MEDS: lisinopril 10 mg Tablet PO (09:11)
[2021-10-16] MEDS: lamoTRIgine 100 mg Tablet 50 MG PO (09:11)
[2021-10-16 14:00] VITALS: BP 94/51; PULSE 92; RESP 18; TEMP 36.6; O2SAT 98
[2021-10-16 20:30] VITALS: BP 129/86; PULSE 94; RESP 18; TEMP 36.7; O2SAT 98
[2021-10-16] MEDS: lithium carbonate 300 mg Capsule PO (20:34)
[2021-10-16] MEDS: hyDROXYzine 25 mg Capsule 50 MG PO (21:31)
[2021-10-17 06:00] VITALS: BP 110/75; PULSE 89; RESP 18; TEMP 36.4; O2SAT 97
[2021-10-17] MEDS: lurasidone 20 mg Tablet PO (08:42)
[2021-10-17] MEDS: lisinopril 10 mg Tablet PO (08:42)
[2021-10-17] MEDS: lamoTRIgine 100 mg Tablet 50 MG PO (08:43)
[2021-10-17] MEDS: hyDROXYzine 25 mg Capsule PO ×2 (08:43→20:42)
[2021-10-17] MEDS: gabapentin 300 mg Capsule PO ×3 (08:44→20:42)
--- NOTE | 2021-10-17 11:53 | PC.NURSE ---
NEW ORDER SPOKE WITH DR. JOE NEW ORDERS RECEIVED TO DISCONTINUE LAMICTIAL AND LITHIUM. ORDERS PLACED IN [facility]. DR. JOE WENT AND NOTIFIED PT OF NEW ORDERS.
[2021-10-17 14:00] VITALS: BP 146/89; PULSE 96; RESP 18; TEMP 36.8; O2SAT 100
--- NOTE | 2021-10-17 16:17 | W.PM.NPUPNS ---
Subjective NPU Subjective: Patient presents today reporting that she is still feeling depressed. She reports that the Latuda is ineffective discussed with benefits and alternatives of initiating Vraylar and she understood and agreed to proceed as is documented in this note. We also discussed discontinuing the lithium at the subtherapeutic dose given we will not be increasing it given her lack of desire to continue it due to trying to get . Mental Status Exam MSE Comments: This is an obese versus morbidly obese white female, in hospital scrubs, with limited grooming and adequate eye contact. No abnormal movements, except for mild psychomotor retardation. Cooperative with exam in no acute distress. Speech was decreased rate and volume. Mood described as still depressed; affect congruent. Thought process, organized. Thought content: patient endorsed fleeting suicidal ideation but denied homicidal ideation, there were no delusions reported or noted, patient does report hearing voices intermittently but denied any visual hallucinations. Attention, concentration, and memory appear intact but none were formally tested. She is alert and oriented times three. Insight fair, judgment impaired. Impulse control is limited. Vitals/I&O/Wt Last Vital Signs Temp 98.4 F 10/17/21 20:48 Pulse 111 H 10/17/21 20:48 Resp 20 H 10/17/21 20:48 BP 124/85 10/17/21 20:48 Pulse Ox 99 10/17/21 20:48 Data NPU : 10/15/21 12:08 10/15/21 12:08 A&P Assessment and plan (1) Bipolar disorder, curr episode depressed, severe, w/psychotic features: Status: Acute (2) Adjustment disorder with mixed disturbance of emotions and conduct: Status: Acute Plan This is a 26-year-old white female with a long history of mental health issues and different diagnoses in the past who presents with symptoms consistent with bipolar disorder versus schizoaffective disorder currently on medications but with concerns related to efficacy as well as possible planned open to make changes to help stabilize her current mood. 1.? Continue current medications.? Except we will talk to her insurance company to identify whether Vraylar is an option instead of the Latuda. Discontinue lithium. 2.? Continue every 15 minute checks for safety. 3.? Encourage individual, group and milieu therapies. 4.? We will ensure that past addictive issues are no longer present. Involuntary Hold Information 96 Hour Hold: 96 Hour Involuntary Admission: No Attestations NPU Medical Necessity Statement*: Inpatient hospitalization is medically necessary and the clinically appropriate intervention at this time.? We will monitor medications and make changes as indicated.? Likely length of stay 3-5 days. Coding Level of Care Code Acute Aboriginal Community Council Member for [facility] Fwd Diagnoses Bipolar disorder, curr episode depressed, severe, w/psychotic features F31.5 Adjustment disorder with mixed disturbance of emotions and conduct F43.25
[2021-10-17 20:48] VITALS: BP 124/85; PULSE 111; RESP 20; TEMP 36.9; O2SAT 99
[2021-10-17] MEDS: trazodone 50 mg Tablet PO (22:01)
[2021-10-18 06:00] VITALS: BP 136/83; PULSE 98; RESP 18; TEMP 36.6; O2SAT 98
[2021-10-18] MEDS: lurasidone 20 mg Tablet PO (08:41)
[2021-10-18] MEDS: lisinopril 10 mg Tablet PO (08:41)
[2021-10-18] MEDS: gabapentin 300 mg Capsule PO ×3 (08:41→20:17)
--- NOTE | 2021-10-18 09:06 | PC.NURSE ---
NEW ORDER RECEIVED FROM DR. SANDHU TO START VRAYLAR 1.5 MG PO DAILY. CALLED SCRIPT TO [facility] HOUSE PHARM[facility]Y. ORDERS PLACED IN [facility]
--- NOTE | 2021-10-18 09:20 | PC.NURSE ---
PT STATES SHE SLEPT WELL. REPORTS SHE IS STILL HAVING SUICIDAL THOUGHTS WITH NO PLAN. CONTRACTED FOR SAFETY. DENIES PAIN. DENIES HI AND AVH AT THIS TIME. PT IS SOMEWHAT ANXIOUS. STATES IF SHE NEEDS ANXIETY MEDS SHE WILL LET STAFF KNOW. PT UP TALKING ON PHONE WITH APPEARS TO BE IN BETTER SPIRITS TODAY. ALL QUESTIONS ANSWERED AND SUPPORT VOICED.
--- NOTE | 2021-10-18 09:49 | PC.NURSE ---
INPATIENT PHARMACY UNABLE TO FILL VRAYLAR 1.5 MG. CALLED SCRIPT IN TO [facility] IN [place]. WILL AUTO WHEEL ALIGNMENT SPECIALIST SCRIPT AND BRING TO THE FACILITY AT VISITATION TIME.
[2021-10-18] MEDS: OLANZapine 5 mg ODT PO (11:35)
--- NOTE | 2021-10-18 11:35 | PC.NURSE ---
Pt experiencing Suicidal thoughts administered a 5mg Zyprexa Zydis, contracted for safety.
--- NOTE | 2021-10-18 12:18 | PC.NURSE ---
NEW ORDERS TO [facility]. ORDERS PLACED AND PT EDUCATED.
[2021-10-18 13:31] VITALS: BP 121/70; PULSE 103; RESP 17; TEMP 36.7; O2SAT 98
[2021-10-18] MEDS: NON-FORMULARY MEDICATION (Cariprazine [Vraylar] 1.5 mg Capsule) 1.5 EACH PO (15:41)
--- NOTE | 2021-10-18 16:27 | W.PM.NPUPNS ---
Subjective NPU Subjective: Patient presents today reporting that she is feeling more optimistic as the changes are occurring. Spoke with mother and patient regarding bipolar illness, patient reports passive wish intermittently. No longer on lithium and no side effects reported today, though she continues to report depressed mood. Patient reports no feelings of hopelessness, but reports continued depression. Patient reports increase stress in home managing children, Reports hx of worsening of mood two years ago. Able to obtain Vraylar from outpatient pharmacy and started 1.5 mg p.o. daily. Mental Status Exam MSE Comments: This is an obese versus morbidly obese white female, in hospital scrubs, with limited grooming and adequate eye contact. No abnormal movements, except for mild psychomotor retardation. Cooperative with exam in no acute distress. Speech was decreased rate and volume. Mood described as still depressed; affect congruent and restricted. Thought process, organized. Thought content: patient endorsed passive wish but denied suicidal or homicidal ideation, there were no delusions reported or noted, patient does report hearing voices intermittently but denied any visual hallucinations and not attending to internal stimuli. Attention, concentration, and memory appear intact but none were formally tested. She is alert and oriented times three. Insight fair, judgment impaired. Impulse control is limited. Vitals/I&O/Wt Last Vital Signs Temp 98.0 F 10/18/21 13:31 Pulse 112 H 10/18/21 20:00 Resp 16 10/18/21 20:00 BP 112/78 10/18/21 20:00 Pulse Ox 100 10/18/21 20:00 Data NPU : 10/15/21 12:08 10/15/21 12:08 A&P Assessment and plan (1) Bipolar disorder, curr episode depressed, severe, w/psychotic features: Status: Acute (2) Adjustment disorder with mixed disturbance of emotions and conduct: Status: Acute Plan This is a 26-year-old white female with a long history of mental health issues and different diagnoses in the past who presents with symptoms consistent with bipolar disorder versus schizoaffective disorder currently on medications but with concerns related to efficacy as well as possible planned open to make changes to help stabilize her current mood. 1.? Continue current medications.? Start Vraylar 1.5 mg p.o. every morning. 2.? Continue every 15 minute checks for safety. 3.? Encourage individual, group and milieu therapies. 4.? We will ensure that past addictive issues are no longer present. Involuntary Hold Information 96 Hour Hold: 96 Hour Involuntary Admission: No Attestations NPU Medical Necessity Statement*: Inpatient hospitalization is medically necessary and the clinically appropriate intervention at this time.? We will monitor medications and make changes as indicated.?? Likely length of stay 2-4 days. Coding Level of Care Code Acute Counter Tacker for [facility] Fwd Diagnoses Bipolar disorder, curr episode depressed, severe, w/psychotic features F31.5 Adjustment disorder with mixed disturbance of emotions and conduct F43.25
[2021-10-18 20:00] VITALS: BP 112/78; PULSE 112; RESP 16; O2SAT 100
[2021-10-18] MEDS: trazodone 50 mg Tablet PO ×2 (20:17→21:30)
[2021-10-19] MEDS: hyDROXYzine 25 mg Capsule 50 MG PO (02:55)
[2021-10-19 06:00] VITALS: BP 111/78; PULSE 69; RESP 16; O2SAT 99
[2021-10-19] MEDS: gabapentin 300 mg Capsule PO ×3 (09:00→20:29)
[2021-10-19] MEDS: lisinopril 10 mg Tablet PO (09:00)
[2021-10-19] MEDS: NON-FORMULARY MEDICATION (Cariprazine [Vraylar] 1.5 mg Capsule) 1.5 EACH PO (09:02)
--- NOTE | 2021-10-19 11:30 | P.NPUPN_ITS ---
Subjective NPU Subjective: Patient presents today reporting that she has been been more optimistic about the vraylar controlling her voices. Despite this she had received additional zyprexa oral yesterday as she described the voices being more overwhelming at times. She denied any olivia, she reports some relief of anxiety and pain with neurontin. She reports struggling with falling asleep having received 100mg of tranzodone at night. She reports continued desire to get . Mental Status Exam MSE Comments: obese white female, in hospital scrubs, with fair grooming and adequate eye contact. No abnormal movements, except for mild psychomotor retardation. Cooperative with exam in no acute distress. Speech was normal for rate and volume. Mood described as still depressed; affect congruent and restricted. Thought process, linear and organized. Thought content: patient endorsed passive wish but denied suicidal or homicidal ideation, there were no delusional thinking noted, patient does report hearing voices intermittently but denied any visual hallucinations and was not attending to internal stimuli. Attention, concentration, and memory appear intact but none were formally tested. She is alert and oriented times three. Insight fair, judgment impaired. Impulse control is limited. Vitals/I&O/Wt Last Vital Signs Temp 98.2 F 10/19/21 20:27 Pulse 84 10/19/21 20:27 Resp 16 10/19/21 20:27 BP 128/94 10/19/21 20:27 Pulse Ox 98 10/19/21 20:27 Weight last 48 hrs Weight 124.284 kg Data NPU : 10/15/21 12:08 10/15/21 12:08 A&P Assessment and plan (1) Bipolar disorder, curr episode depressed, severe, w/psychotic features: Status: Acute Plan This is a 26-year-old white female with bipolar I disorder most recent episode depressed with psychotic features currently endorsing auditory hallucinations that appear to be less intense with no evidence of manic symptoms emerging. 1.? Continue Vraylar 1.5 mg p.o. every morning. Continue trazadone 100mg at night for insomnia, increase gabapentin to 400 tid. 2.? Continue every 15 minute checks for safety. 3.? Encourage individual, group and milieu therapies. 4.? We will ensure that past addictive issues are no longer present. Involuntary Hold Information 96 Hour Hold: 96 Hour Involuntary Admission: No Attestations NPU Medical Necessity Statement*: Inpatient hospitalization is medically necessary and the clinically appropriate intervention at this time.? We will monitor medications and make changes as indicated.?? Likely length of stay 2-3 days. Coding Level of Care Code Acute Inspector Bullet Slugs for [facility] Fwd History Problem Focused Exam Problem Focused Medical Decision Making Straight Forward Diagnoses Bipolar disorder, curr episode depressed, severe, w/psychotic features F31.5
[2021-10-19 14:00] VITALS: BP 140/88; PULSE 80; RESP 17; TEMP 36.6; O2SAT 98
[2021-10-19 20:27] VITALS: BP 128/94; PULSE 84; RESP 16; TEMP 36.8; O2SAT 98
[2021-10-19] MEDS: trazodone 50 mg Tablet PO (20:29)
[2021-10-20 06:00] VITALS: BP 128/94; PULSE 86; RESP 16; TEMP 36.4; O2SAT 98; BMI 44.2
[2021-10-20] MEDS: lisinopril 10 mg Tablet PO (08:00)
[2021-10-20] MEDS: NON-FORMULARY MEDICATION (Cariprazine [Vraylar] 1.5 mg Capsule) 1.5 EACH PO (08:00)
[2021-10-20] MEDS: gabapentin 400 mg Capsule PO ×3 (08:00→20:34)
--- NOTE | 2021-10-20 11:20 | P.NPUPN_ITS ---
Subjective NPU Subjective: Patient presents today reporting that she has been been more optimistic about th e vraylar controlling her voices. She reports that she has had no side effects from vraylar. She reports mood has been better. She reports better control of the voices even though they are present. No manic symptoms reported. Mental Status Exam MSE Comments: ?obese white female, in hospital scrubs, with fair? grooming and adequate eye contact. No abnormal movements, except for mild psychomotor retardation. Cooperative with exam in no acute distress. Speech was normal for rate and vo lume. Mood described as better affect was brighter today. Thought process, linear and organized. Thought content: patient denied suicidal or homicidal ideation, there were no delusional thinking noted, patient does report hearing voices intermittently but denied any visual hallucinations and was not attending to internal stimuli. Attention, concentration, and memory appear intact but none were formally tested. She is alert and oriented times three. Insight fair, judgment impaired. Impulse control is limited. Vitals/I&O/Wt Last Vital Signs Temp 97.6 F 10/21/21 14:00 Pulse 93 10/21/21 14:00 Resp 18 10/21/21 14:00 BP 141/90 10/21/21 14:00 Pulse Ox 99 10/21/21 14:00 Weight last 48 hrs Weight 124.284 kg Weight 124.284 kg Data NPU : 10/15/21 12:08 10/15/21 12:08 A&P Assessment and plan (1) Bipolar disorder, curr episode depressed, severe, w/psychotic features: Status: Acute Plan This is a 26-year-old white female with bipolar I disorder most recent episode depressed with psychotic features currently endorsing auditory hallucinations that appear to be less intense with no evidence of manic symptoms emerging.? 1.? Increase Vraylar 3 mg p.o. every morning.? Continue trazadone 100mg at night for insomnia, increase gabapentin to 400 tid.? 2.? Continue every 15 minute checks for safety. 3.? Encourage individual, group and milieu therapies. 4.? We will ensure that past addictive issues are no longer present. Involuntary Hold Information 96 Hour Hold: 96 Hour Involuntary Admission: No Attestations NPU Medical Necessity Statement*: Inpatient hospitalization is medically necessary and the clinically appropriate intervention at this time.? We will monitor medications and make changes as indicated.?? Likely length of stay 2-3 days. Coding Level of Care Code Established Pt Acute Pain Management Nurse for [facility] Fwd Patient Type Established History Problem Focused Exam Problem Focused Medical Decision Making Straight Forward Diagnoses Bipolar disorder, curr episode depressed, severe, w/psychotic features F31.5
[2021-10-20 14:00] VITALS: BP 120/70; PULSE 99; RESP 16; TEMP 36.8; O2SAT 98
[2021-10-20] MEDS: trazodone 50 mg Tablet PO (20:34)
[2021-10-21 06:00] VITALS: BP 120/77; PULSE 90; RESP 18; TEMP 36.6; O2SAT 98
--- NOTE | 2021-10-21 08:31 | PC.NURSE ---
UP IN HALLWAY AMBULATING. NO DISTRESS NOTED. DENIES PAIN. APPEARS TO BE IN GOOD SPIRITS THIS AM. DENIES SI/HI AND AVH AT THIS TIME. PT STATES SHE SLEPT WELL ALL NIGHT. SUPPORT VOICED.
[2021-10-21] MEDS: lisinopril 10 mg Tablet PO (09:18)
[2021-10-21] MEDS: gabapentin 400 mg Capsule PO ×3 (09:18→20:43)
[2021-10-21] MEDS: NON-FORMULARY MEDICATION (Cariprazine [Vraylar] 1.5 mg Capsule) 1.5 EACH PO ×2 (09:19→13:47)
--- NOTE | 2021-10-21 12:28 | W.PM.NPUPNS ---
Subjective NPU Subjective: She reports better control of her voices, states that the voices have been quiet. She reported good sleep and appetite. She did not forward any thoughts of hurting herself she reports that she has been motivated to leave here. She reported no side effects from her increase in Vraylar. Mental Status Exam MSE Comments: ?obese white female, in hospital scrubs, with fair? grooming and adequate eye contact. No abnormal movements, except for mild psychomotor retardation. Cooperative with exam in no acute distress. Speech was normal for rate and volume. Mood described as better affect was brighter today.? Thought process, linear and organized. Thought content: patient? denied suicidal or homicidal ideation, there were no delusional thinking noted, patient does report hearing voices intermittently but denied any visual hallucinations and was not attending to internal stimuli. Attention, concentration, and memory appear intact but none were formally tested. She is alert and oriented times three. Insight fair, judgment impaired. Impulse control is limited. Vitals/I&O/Wt Last Vital Signs Temp 97.6 F 10/21/21 14:00 Pulse 93 10/21/21 14:00 Resp 18 10/21/21 14:00 BP 141/90 10/21/21 14:00 Pulse Ox 99 10/21/21 14:00 Weight last 48 hrs Weight 124.284 kg Data NPU : 10/15/21 12:08 10/15/21 12:08 A&P Assessment and plan (1) Bipolar disorder, curr episode depressed, severe, w/psychotic features: Status: Acute Plan This is a 26-year-old white female with bipolar I disorder most recent episode depressed with psychotic features currently endorsing auditory hallucinations that appear to be less intense with no evidence of manic symptoms emerging.? 1.? Continue Vraylar 3 mg p.o. every morning.? Continue trazadone 100mg at night for insomnia, continue gabapentin to 400 tid.? 2.? Continue every 15 minute checks for safety. 3.? Encourage individual, group and milieu therapies. 4.? We will ensure that past addictive issues are no longer present. 5. Likely discharge tommorow Involuntary Hold Information 96 Hour Hold: 96 Hour Involuntary Admission: No Attestations NPU Medical Necessity Statement*: Inpatient hospitalization is medically necessary and the clinically appropriate intervention at this time.? We will monitor medications and make changes as indicated.?? Likely length of stay 1-2 days. Coding Level of Care Code Established Pt Acute Director Of Research And Development for Chg Fwd Patient Type Established History Problem Focused Exam Problem Focused Medical Decision Making Straight Forward Diagnoses Bipolar disorder, curr episode depressed, severe, w/psychotic features F31.5
[2021-10-21 14:00] VITALS: BP 141/90; PULSE 93; RESP 18; TEMP 36.4; O2SAT 99
[2021-10-21] MEDS: trazodone 50 mg Tablet PO (20:43)
[2021-10-21 22:00] VITALS: BP 118/84; PULSE 102; RESP 19; TEMP 36.7; O2SAT 98
[2021-10-22 06:00] VITALS: BP 127/87; PULSE 96; RESP 17; TEMP 36.7; O2SAT 98
[2021-10-22] MEDS: loperamide 2 mg Capsule PO (06:25)
[2021-10-22] MEDS: lisinopril 10 mg Tablet PO (08:05)
[2021-10-22] MEDS: gabapentin 400 mg Capsule PO (08:05)
[2021-10-22] MEDS: CARIPRAZINE 3 MG 3 EACH PO (09:59)
--- NOTE | 2021-10-22 11:11 | PC.NURSE ---
UP IN ROOM MAKING BED. APPEARS TO BE IN BETTER SPIRITS TODAY. PT DENIES PAIN. DENIES SI/HI AND AVH AT THIS TIME. PT REPORTS SHE HAS NOT HEARD ANY VOICES SINCE LAST NIGHT, WHICH IS AN IMPROVEMENT FOR HER. PT STATES SHE IS READY FOR DC AND EXCITED TO HOME WITH FAMILY. SUPPORT VOICED.
[2021-10-22 12:53] VITALS: BP 127/87; PULSE 96; RESP 17; TEMP 36.7; O2SAT 98
--- NOTE | 2021-10-22 12:59 | P.NPUDS_ITS ---
Diagnoses at Discharge Discharge Diagnosis (1) Bipolar disorder, curr episode depressed, severe, w/psychotic features: Status: Acute Reason for Visit Reason for Visit: SI Brief History: History of Present Illness Richi Fountain is a 26 year old female who presented to the emergency department with the following report: Chief Complaint: Psychiatric Symptoms Stated Complaint: SI Time Seen by Provider: 10/15/21 11:44 History of Present Illness:?? 26-year-old presents with suicidal ideation.? She states she is on gabapentin Latuda and lithium.? Reports plan to overdose on gabapentin but states she has not done it yet.? Denies any homicidal ideation.? Denies any focal pain.? Denies any hallucinations or delusions. She was admitted to the neuropsychiatric unit for definitive treatment of those issues.? She is known to this sports writer from a previous inpatient stay that started 04/18/2021.? She reports that since discharge on Lexapro 20 and Latuda 40 she had continued to have depression.? She reports that they decided to put her on lithium and decrease her Latuda.? She started Ozempic and there was an increase in tremors she reports about 2 weeks ago there was a shift in her mood and she started feeling like she was hypomanic and that time she was having grandiosity decreased need for sleep and increased energy and racing thoughts.? For the last week she reports that that switched over to being depressed having increased sleep low motivation suicidal ideation with a plan to overdose on her Neurontin.? She is also had a reemergence of intermittent auditory hallucinations.? We reviewed her medications and discussed the risk benefits and alternatives of making some changes and she understood and agreed to proceed as is documented in this note.? She reports that otherwise there have been no substantive changes since her last hospitalization and an excerpt of that note is included below for context. Per her 04/18/2021 [facility] inpatient psychiatric evaluation: Richi Fountain is a 25 year old female who presented to the emergency department the following report: Chief Complaint: Psychiatric Symptoms Stated Complaint: MHE Time Seen by Provider: 04/17/21 11:52 Source: patient and family Mode of arrival: ambulatory History of Present Illness:?? HPI Narrative: 25-year-old female complaining of increased suicidal ideations over the past several days.? Her plan this morning was to overdose on medication anything I could find She has 6 children, youngest is 2 years old, and often feels they would be better off without me Is , has a supportive , lots of supportive family members. Reports hearing a voice tell her to kill herself, to stop being a coward . Denies visual hallucinations. ? complaint: suicidal ideation Onset (ago): day(s) Duration: intermittent and getting worse History of same: Yes Associated psychiatric symptoms: depression and auditory hallucinations Associated symptoms: Reports auditory hallucinations, depression and suicidal ideation If self harm: admits thoughts of self harm, has plan and intentional overdose. She was admitted to the neuropsychiatric unit for definitive treatment of those issues. She presents today reporting she has allergies to penicillin and BuSpar and that she is currently taking Lexapro 20 milligrams po qam, Latuda 40 milligrams po q daily, Vistaril prn, and vitamins. She reports that she has been hospitalized one time in her life, which was in January, in [facility], and she has outpatient services at [facility] [place]. She reports, in addition to the Lexapro, Latuda and Vistaril she is taking, she has taken Seroquel, in the past, and Wellbutrin in the past, which gave her hypertension, and Zoloft with which she had some feeling of numbness. She denies smoking cigarettes, denies drinking alcohol, but does report occasional marijuana use. She denies any other illicit drug use. She has never been to drug rehabilitation or had drug and alcohol treatment. She has never had a DUI or any other drug related charges. She reports she feels that. starting in May of 2019, she had depression after the of her first and only son, and she was started on Zoloft which left her with numbness. She stopped the Zoloft and the numbness resolved and the the depression resolved, but then this January she had a return of the depression that was overwhelming, and she started having suicidal thoughts. She reports feelings of low mood, and of helplessness, h opelessness, and worthlessness. She reports that her sleep does not happen much during the evening, but during the day she wants to sleep all day. She reports that she has some anxiety, lack of initiative to do the things she needs to do, and she does endorse that there has been a major change in that they have been fostering, and she has five teenagers between ages 15 and 18 currently in her home.? We discussed the risks, benefits, and alternatives of increasing her Latuda to 80, in an attempt to target the voices, and she understood and agreed to proceed as is documented in this note.? PSYCHIATRIC HISTORY: As above. SUBSTANCE ABUSE HISTORY: As above.? FAMILY HISTORY: She endorses some mental health issues on her dad?s side of the family, but she denies addiction on either side, or any suicide attempts or completions in the family. DEVELOPMENTAL HISTORY: She reports her mom did have preeclampsia but, otherwise, she denied any issues with her or delivery. She reports she learned to walk and talk and met all developmental milestones on time. When she went to school, the patient denied any need for speech therapy, learning support, emotional support, or special education classes. PSYCHOSOCIAL HISTORY: She reports her parents were together when she was born and remain together. She endorses she has a younger brother who is also a product of that union. She denies any other children that either of her parents have had. She reports her childhood was normal and fine, and she denied any emotional, physical, or sexual abuse. She denies any trauma history but does report that she has always seemed to have nightmares. She endorses graduating from high school and getting a technical degree.? She endorses being heterosexual, with her longest relationship being eight years; most recently, for five of those years with her . She has been one time; she has one biological child but is fostering five teenage kids, two sets of siblings and one solo, ages 15 to 19. She denies any history.? She endorses being a Druze. She reports that her longest employment is six years as an [employer]. She reports that she lives in a house with all the foster kids, her son, and her . LEGAL HISTORY: Denied. 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 Meds NPU Home Medications ?Medication ?Instructions ?Recorded ?Confirmed ?Last Taken ?Type hydroxyzine HCl 25 mg tablet 25 mg PO QID PRN #120 tab 04/22/21 10/15/21 Rx gabapentin 100 mg capsule 300 mg PO TID 10/15/21 10/15/21 10/15/21 History lisinopril 10 mg t ablet 10 mg PO DAILY 10/15/21 10/15/21 Unk nown History lithium carbonate 300 mg tablet 300 mg PO BEDTIME 10/15/21 10/15/21 History lurasidone 20 mg t ablet (Latuda) 20 mg PO DAILY 10/15/21 10/15/21 10/14/21 History semaglutide 1 mg/d ose (4 mg/3 mL) 1 mg SUBCUT Q7D 10/15/21 10/15/21 10/11/21 History subcutaneous pen i njector (Ozempic)E ? lamotrigine 25 mg tablet 50 mg PO DAILY 10/16/21 10/16/21 Unk nown History Allergies Allergy/AdvReac Type Severity Reaction Status Date / Time buspirone Allergy ? Nausea, Verified 05/06/21 14:36 ? ? ? Vomiting ? ? lamotrigine [From Lamictal] Allergy ? ALGY-Rash Verified 10/15/21 11:38 Penicillins Allergy ? Hives Verified 05/06/21 14:36 PFSH NPU PFSH:?? Medical History?( Updated 10/16/21 @ 10:10 by Juan msith MD) MDD (major depressive disorder), single episode, severe wi th psychotic featu res Psychiatric ca re ? Hospital Course Hospital Course The patient was admitted to the neuropsychiatric unit for further observation and treatment. She had initially complained of auditory hallucinations and reported worsening depression over the last year. The patient had reported that the previous antipsychotic when (reduced had not been as effective. After discussing risks and benefits of new medication the patient was initiated on 1.5 mg daily of Vraylar VRA Y LAR. She noticed great improvement in regards to her mood and noticed a reduction in the intensity and frequency of the auditory hallucinations. During the hospitalization the patient had routine laboratory studies which were within normal limits except for a few outliers. There was a general medical evaluation which was also within normal limits and\ revealed no acute processes. At the time of discharge lethality was denied and psychosis appear to be resolving. Her mood and anxiety appeared well managed she did endorsed a plan to avoid any illicit drugs of abuse and follow-up with the aftercare recommendations of the treatment team through use a lease the patient was evaluated and deemed to be absent any credible lethality and had achieved the maximum benefit from an inpatient hospitalization and was thereby discharged. Involuntary Hold Information 96 Hour Hold: 96 Hour Involuntary Admission: No Discharge Data Studies Completed and Pending: Laboratory Results WBC 19.3 10^3/uL (4.0 -10.0) H 10/15/21 12:08 RBC 5.17 10^6/uL (4.1 -5.3) 10/15/21 12:08 Hgb 15.3 g/dL (11.5-1 5.3) 10/15/21 12:08 Hct 45.0 % (37.0-47.0 ) 10/15/21 12:08 MCV 87.0 fl (81-99) 10/15/21 12:08 MCH 29.6 pg (28.0-34. 0) 10/15/21 12:08 MCHC 34.0 g/dL (30.0-3 6.0) 10/15/21 12:08 RDW 12.8 % (12.1-15.1 ) 10/15/21 12:08 Plt Count 399 10^3/cmm (130 -400) 10/15/21 12:08 MPV 8.4 fL (7.4-10.4) 10/15/21 12:08 Neut % (Auto) 75.4 % 10/15/21 12:08 Lymph % (Auto) 18.5 % 10/15/21 12:08 [place] % (Auto) 4.8 % 10/15/21 12:08 Eos % (Auto) 0.6 % 10/15/21 12:08 Baso % (Auto) 0.4 % 10/15/21 12:08 Neut # (Auto) 14.57 10^3/uL (1. 8-7.7) H 10/15/21 12:08 Lymph # (Auto) 3.6 10^3/uL (0.8- 4.8) 10/15/21 12:08 [place] # (Auto) 0.9 10^3/uL (0.2- 0.9) 10/15/21 12:08 Eos # (Auto) 0.1 10^3/uL (0.0- 0.8) 10/15/21 12:08 Baso # (Auto) 0.1 10^3/uL (0.0- 0.1) 10/15/21 12:08 Nucleated RBC % (a uto) 0 % 10/15/21 12:08 Nucleated RBCs # 0.0 /100WBC 10/15/21 12:08 Sodium 137 mmol/L (136-1 45) 10/15/21 12:08 Potassium 4.0 mmol/L (3.5-5 .1) 10/15/21 12:08 Chloride 102 mmol/L (98-10 7) 10/15/21 12:08 Carbon Dioxide 22 mmol/L (22-29) 10/15/21 12:08 Anion Gap 17.0 (5-19) 10/15/21 12:08 BUN 10 mg/dL (6-20) 10/15/21 12:08 Creatinine 0.6 mg/dL (0.5-0. 9) 10/15/21 12:08 GFR Calculation 119.0 mL/min (90- 130) 10/15/21 12:08 Glucose 102 mg/dL (65-115 ) 10/15/21 12:08 Calculated Osmolal ity 283 mOsm/kg (285- 295) L 10/15/21 12:08 Calcium 9.4 mg/dL (8.5-10 .5) 10/15/21 12:08 Total Bilirubin 0.2 mg/dL (0.15-1 .2) 10/15/21 12:08 AST 14 U/L (0-32) 10/15/21 12:08 ALT 24 U/L (0-33) 10/15/21 12:08 Alkaline Phosphata se 88 IU/L (35-105) 10/15/21 12:08 Total Protein 8.2 g/dL (6.6-8.7 ) 10/15/21 12:08 Albumin 4.7 g/dL (3.5-5.2 ) 10/15/21 12:08 Globulin 3.5 g/dL (1.3-4.6 ) 10/15/21 12:08 TSH 1.35 uIU/mL (0.27 -4.20) 10/15/21 12:08 HCG, Qual Negative (Negati ve) 10/15/21 11:30 Urine Color Yellow (Yellow) 10/15/21 11:30 Urine Appearance Clear (CLEAR) 10/15/21 11:30 Urine pH 5 (5-7) 10/15/21 11:30 Ur Specific Gravit y 1.030 (1.005-1.0 30) 10/15/21 11:30 Urine Protein Neg (Negative) 10/15/21 11:30 Urine Glucose (UA) Norm (Normal) 10/15/21 11:30 Urine Ketones Negative (Negati ve) 10/15/21 11:30 Urine Blood Neg (Negative) 10/15/21 11:30 Urine Nitrate Negative (Negati ve) 10/15/21 11:30 Urine Bilirubin Neg (Negative) 10/15/21 11:30 Urine Urobilinogen Norm mg/dL (Negat justice) 10/15/21 11:30 Ur Leukocyte Bee ase Negative (Negati ve) 10/15/21 11:30 Salicylates < 0.3 mg/dL (3-10 ) L 10/15/21 12:08 Urine Opiates Scre en Negative ng/mL (N egative) 10/15/21 11:30 Acetaminophen < 5.0 ug/mL (10-3 0) L 10/15/21 12:08 Ur Barbiturates Sc reen Negative ng/mL (N egative) 10/15/21 11:30 Ur Phencyclidine S crn Negative ng/mL (N egative) 10/15/21 11:30 Ur Amphetamines Sc reen Negative ng/mL (N egative) 10/15/21 11:30 U Benzodiazepines Scrn Negative ng/mL (N egative) 10/15/21 11:30 [place] 0.2 mmol/L (0.6-1 .2) L 10/15/21 12:08 Urine Cocaine Scre en Negative ng/mL (N egative) 10/15/21 11:30 U Marijuana (THC) Screen Negative ng/mL (N egative) 10/15/21 11:30 Ethyl Alcohol < 10 mg/dL (0-10) 10/15/21 12:08 Vitals: Last Vital Signs Temp 98.0 F 10/22/21 12:53 Pulse 96 10/22/21 12:53 Resp 17 10/22/21 12:53 BP 127/87 10/22/21 12:53 Pulse Ox 98 10/22/21 12:53 Discharge Plan Discharge Patient Disposition: Home Condition: Stable Prescriptions: New Cariprazine [Vraylar] 3 mg PO DAILY 30 Days Qty: 30 1RF gabapentin 400 mg Capsule 400 mg PO TID 30 Days Qty: 90 1RF Continued hydroxyzine HCl 25 mg tablet 25 mg PO QID PRN (Reason: anxiety or sleep) Qty: 120 3RF Ozempic 1 mg/dose (4 mg/3 mL) pen injector 1 mg SUBCUT Q7D 0RF Rx Instructions: On Fridays lisinopril 10 mg Tablet 10 mg PO DAILY 0RF Discontinued gabapentin 100 mg capsule 300 mg PO TID 0RF lithium carbonate 300 mg tablet 300 mg PO BEDTIME 0RF Latuda 20 mg Tablet 20 mg PO DAILY 0RF Rx Instructions: must administer with food (at least 350 calories) lamotrigine 25 mg Tablet 50 mg PO DAILY 0RF Vraylar 1.5 mg Capsule 1.5 mg PO DAILY 0RF Discharge Orders: Discharge Order (Routine); Ordered 10/22/21 Ordered By: Shravan Kahn Referrals: [facility] [Other] - 11/14/21 4:00 pm (Counseling appointment with Yusuf Locke.) [facility] -Dr. Díaz [Other] - 10/24/21 10:40 am (Appointment is with Psychiatrist Dr. Díaz.) Shantell Ybarra FNP [Primary Care Provider] - Discharge Diet: Advance as tolerated Discharge Activity: Resume usual activity Patient Instructions: Bipolar Disorder (DC), Depression (DC), Suicide Prevention (DC), Opioid Safety Discharge Attestations NPU Time Spent in Discharge Care*: less than 30 min Specific Discharge Activities: Specific discharge activities: educating patient, educating and/or supporting family/caregiver, discussing with community case manager/social workers/dc planners, documenting/other paperwork and evaluating patient/reviewing data Coding Level of Care Code Established Pt Acute Chg FW DC note Patient Type Established History Problem Focused Exam Problem Focused Medical Decision Making Straight Forward Diagnoses Bipolar disorder, curr episode depressed, severe, w/psychotic features F31.5
== END 2021-10-22 13:45 | disposition home or self-care (01) | DRG 885 ==
LOC: ER 11:56 → NP 14:05
PROVIDERS: Admitting Provider Psychiatry & Neurology Psychiatry; Emergency Provider Emergency Medicine; PCP Nurse Practitioner Family; Visit Provider Psychiatry & Neurology Psychiatry
DX: F31.5 Bipolar disorder, current episode depressed, severe, with psychotic features (principal); R45.851 Suicidal ideations; Z68.41 Body mass index [BMI] 40.0-44.9, adult; F43.25 Adjustment disorder with mixed disturbance of emotions and conduct; E66.9 Obesity, unspecified
CPT/HCPCS: 80053; 80178; 80306; 80307; 81003; 81025; 84443; 85025; 97150; 97165; 99285

== ENCOUNTER 2023-02-25 10:12 | Emergency (ER) | payer BC, SELFPAY ==
[2023-02-25 10:25] VITALS: BP 155/114; PULSE 88; RESP 18; TEMP 36.8; O2SAT 98; BMI 43.2
--- NOTE | 2023-02-25 10:27 | ECG_ITS ---
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 [id number]
--- NOTE | 2023-02-25 10:40 | W.ED.GENADLT ---
HPI - General Adult General: Chief complaint: General Medical Stated complaint: high bp, sob, headache Time Seen by Provider: 02/25/23 10:19 Source: patient Mode of arrival: ambulatory History of Present Illness: 27-year-old female presents emergency room with a complaint of elevated blood pressure headache. She was recently seen by her primary care doctor blood pressure was in the 170s over 100s and she was referred to the emergency room. She had been on Auvelity (dextromethorphan Bupropion combination) patient had stopped taking it and is concerned about withdrawal. In addition only that adjusted her blood pressure medications recently increasing labetalol and adding lisinopril. No fever sweats or chills at this time. Associated symptoms: Deny chest pain, dyspnea or rash Review of Systems Const: Denies: fever(s) or chills Card: Denies: chest pain Resp: Denies: dyspnea GI: Denies: abdominal pain : Denies: dysuria, urinary frequency or urinary urgency Musc: Denies: neck pain or back pain Skin/Breast: Denies: rash PFSH ED PFSH: Medical History (Updated 02/25/23 @ 11:40 by Dennis Woody DO) MDD (major depressive disorder), single episode, severe with psychotic features Psychiatric care Physical Exam Const: COMMON NORMALS: no acute distress GENERAL APPEARANCE: cooperative and comfortable ORIENTATION/CONSCIOUSNESS: Yes awake, Yes oriented to person, Yes oriented to place and Yes oriented to time HENMT: COMMON NORMALS: normocephalic, atraumatic and hearing grossly normal bilaterally HEAD & SCALP: normocephalic and atraumatic Resp: COMMON NORMALS: normal respiratory effort, No retractions, No use of accessory muscles and clear to auscultation bilaterally AUSCULTATION: clear to auscultation bilaterally Cardio: COMMON NORMALS: regular rate, regular rhythm and No murmurs present (Cardio) RATE: regular rate RHYTHM: regular rhythm GI: COMMON NORMALS: Soft to palpation and No hepatosplenomegaly present AUSCULTATION: Yes normoactive bowel sounds PALPATION: Yes Soft to palpation, No Tenderness to palpation present (GI), No Guarding due to palpation present (GI) and Yes No hepatosplenomegaly present Extremity: COMMON NORMALS: normal to inspection, capillary refill normal, no clubbing, cyanosis or edema, no calf tenderness and no pedal edema Neuro: SENSORIUM/ORIENTATION: Yes oriented to person, Yes oriented to place and Yes oriented to time Skin: COMMON NORMALS: no rashes or lesions noted GENERAL SKIN EXAM: no rashes or lesions noted Course Vital Signs: Vital signs: Vital Signs Temperature 98.3 F 02/25/23 10:25 Pulse Rate 80 02/25/23 11:32 Respiratory Rate 16 02/25/23 11:32 Blood Pressure 140/98 02/25/23 11:32 Pulse Oximetry 99 02/25/23 11:32 Oxygen Delivery Me thod Room Air 02/25/23 10:51 MDM - General Adult Medical Decision Making Blood pressure improved will add amlodipine 2.5 mg daily. Continue other medications and recheck with your primary care doctor. Within the next week. Medical Records I reviewed the patient's medical records. Lab Data I reviewed the patient's lab results. 02/25/23 10:54 02/25/23 10:54 Laboratory Results WBC 12.00 10^3/uL (3.29-11.43) H 02/25/23 10:54 RBC 4.77 10^6/uL (3.85-5.65) 02/25/23 10:54 Hgb 13.70 g/dL (11.27-16.99) 02/25/23 10:54 Hct 42.3 % (36-47) 02/25/23 10:54 MCV 88.7 fl (85-98) 02/25/23 10:54 MCH 28.7 pg (27-33) 02/25/23 10:54 MCHC 32.4 g/dL (30-55) 02/25/23 10:54 RDW 13.3 % (12.1-15.1) 02/25/23 10:54 Plt Count 358 10^3/cmm (157-399) 02/25/23 10:54 MPV 8.8 fL (7.4-10.4) 02/25/23 10:54 Neut % (Auto) 68.5 % 02/25/23 10:54 Lymph % (Auto) 21.9 % 02/25/23 10:54 Coos % (Auto) 7.7 % 02/25/23 10:54 Eos % (Auto) 0.8 % 02/25/23 10:54 Baso % (Auto) 0.8 % 02/25/23 10:54 Neut # (Auto) 8.22 10^3/uL (1.8-7.7) H 02/25/23 10:54 Lymph # (Auto) 2.6 10^3/uL (0.8-4.8) 02/25/23 10:54 Coos # (Auto) 0.9 10^3/uL (0.2-0.9) 02/25/23 10:54 Eos # (Auto) 0.1 10^3/uL (0.0-0.8) 02/25/23 10:54 Baso # (Auto) 0.1 10^3/uL (0.0-0.1) 02/25/23 10:54 Nucleated RBC % (auto) 0 % 02/25/23 10:54 Nucleated RBCs # 0.0 /100WBC 02/25/23 10:54 Sodium 138 mmol/L (136-145) 02/25/23 10:54 Potassium 3.6 mmol/L (3.5-5.1) 02/25/23 10:54 Chloride 103 mmol/L (98-107) 02/25/23 10:54 Carbon Dioxide 25 mmol/L (22-29) 02/25/23 10:54 Anion Gap 13.6 (5-19) 02/25/23 10:54 BUN 12 mg/dL (6-20) 02/25/23 10:54 Creatinine 0.8 mg/dL (0.5-0.9) 02/25/23 10:54 GFR Calculation 84.8 mL/min (90-130) L 02/25/23 10:54 Glucose 91 mg/dL (65-115) 02/25/23 10:54 Calculated Osmolality 285 mOsm/kg (285-295) 02/25/23 10:54 Calcium 9.3 mg/dL (8.5-10.5) 02/25/23 10:54 Total Bilirubin 0.5 mg/dL (0.15-1.2) 02/25/23 10:54 AST 25 U/L (0-32) 02/25/23 10:54 ALT 47 U/L (0-33) H 02/25/23 10:54 Alkaline Phosphatase 75 U/L (35-105) 02/25/23 10:54 Total Protein 7.2 g/dL (6.6-8.7) 02/25/23 10:54 Albumin 4.5 g/dL (3.5-5.2) 02/25/23 10:54 Globulin 2.7 g/dL (1.3-4.6) 02/25/23 10:54 No radiology studies performed this visit Discharge Plan Discharge Patient Disposition: Home Clinical Impression: HTN (hypertension) Condition: Stable Prescriptions: New amlodipine 2.5 mg tablet 2.5 mg PO DAILY Qty: 30 0RF No Action hydroxyzine HCl 25 mg tablet 25 mg PO QID PRN (Reason: anxiety or sleep) Qty: 120 3RF Ozempic 1 mg/dose (4 mg/3 mL) pen injector 1 mg SUBCUT Q7D Rx Instructions: On Fridays lisinopril 10 mg Tablet 10 mg PO DAILY labetalol 100 mg tablet 100 mg PO TID metformin 500 mg tablet extended release 24 hr 500 mg PO BID lurasidone 60 mg tablet 60 mg PO QPM Auvelity 45-105 mg tablet,IR,delayed rel,biphasic 1 tab PO DAILY Discharge Orders: Discharge ED (Routine); Ordered 02/25/23 Ordered By: Dennis Woody Referrals: Shantell Ybarra FNP [Primary Care Provider] - Discharge Diet: Usual diet Discharge Activity: Resume usual activity Patient Instructions: Opioid Safety, Pain Management Activity Restrictions/Additional Instructions: Thank you for choosing [facility] for your healthcare needs today. Please realize this is an emergency room and that we are providing you with a medical screening exam and this may not be complete and all inclusive of all the testing and or work up that you may need to determine your ailment or severity of your illness. It is very important that you follow up as instructed or that you return to the Emergency Department should you have concerns or if your condition changes or worsens in any way. You are seen today for elevated blood pressure and headache. Do recommend you continue your current medications as per your primary care since instruction physician's add amlodipine 2.5 mg daily and follow-up with your doctor to reevaluate blood pressure within the next week. Coding Level of Care Code ED Residency Program Coordinator for Analilia Alarcon
[2023-02-25 10:51] VITALS: BP 141/105; PULSE 81; RESP 18; O2SAT 96
[2023-02-25 10:58] LABS: Basophils # 0.1 10^3/uL (0.0-0.1); Basophils % 0.8 %; Eosinophils # 0.1 10^3/uL (0.0-0.8); Eosinophils % 0.8 %; Hematocrit 42.3 % (36-47); Lymphocytes # 2.6 10^3/uL (0.8-4.8); Lymphocytes % 21.9 %; Mean Corpuscular HGB Conc 32.4 g/dL (30-55); Mean Corpuscular Hemoglobin 28.7 pg (27-33); Mean Corpuscular Volume 88.7 fl (85-98); Mean Platelet Volume 8.8 fL (7.4-10.4); Monocytes # 0.9 10^3/uL (0.2-0.9); Monocytes % 7.7 %; Neutrophils # 8.22 10^3/uL (1.8-7.7); Neutrophils % 68.5 %; Nucleated Red Blood Cells % 0 %; Platelet Count 358 10^3/cmm (157-399); Red Blood Count 4.77 10^6/uL (3.85-5.65); Red Cell Distribution Width 13.3 % (12.1-15.1)
[2023-02-25] MEDS: amlodipine 5 mg Tablet PO (10:59)
[2023-02-25 11:05] VITALS: BP 141/91; PULSE 77; RESP 20; O2SAT 97
[2023-02-25 11:27] LABS: Alanine Aminotransferase 47 U/L (0-33); Albumin Level 4.5 g/dL (3.5-5.2); Alkaline Phosphatase 75 U/L (35-105); Anion Gap 13.6 (5-19); Aspartate Amino Transferase 25 U/L (0-32); Blood Urea Nitrogen 12 mg/dL (6-20); Calcium 9.3 mg/dL (8.5-10.5); Carbon Dioxide 25 mmol/L (22-29); Chloride 103 mmol/L (98-107); Globulin 2.7 g/dL (1.3-4.6); Glomerular Filtration Rate 84.8 mL/min (90-130); Glucose 91 mg/dL (65-115); Osmolality Calculated 285 mOsm/kg (285-295); Potassium 3.6 mmol/L (3.5-5.1); Sodium 138 mmol/L (136-145); Total Bilirubin 0.5 mg/dL (0.15-1.2); Total Protein 7.2 g/dL (6.6-8.7)
[2023-02-25 11:32] VITALS: BP 140/98; PULSE 80; RESP 16; O2SAT 99
== END 2023-02-25 12:01 | disposition home or self-care (01) ==
PROVIDERS: Emergency Provider Family Medicine; PCP Nurse Practitioner Family
DX: I10 Essential (primary) hypertension (principal); Z79.84 Long term (current) use of oral hypoglycemic drugs
CPT/HCPCS: 80053; 85025; 93005; 99284